=== PATIENT | female | born 1955 | race American Indian/Alaskan Native ===

== ENCOUNTER 2019-11-17 09:38 | Inpatient (IN) | payer MEDICAID ==
--- NOTE | 2019-11-17 10:16 | Cat Scan Report ---
CT BRAIN: 11/17/2019 INDICATION / CLINICAL INFORMATION: Altered mental status. COMPARISON: None available. FINDINGS: BRAIN/INTRACRANIAL STRUCTURES: Unenhanced CT images of the brain demonstrate no evidence of acute abn ormality. Ventricles and sulci are prominent in size, consistent with pronounced diffuse cerebral atrophy. There is a cortical encephalomalacia are present in the left occipital, right parietal and temporal r egions. Extensive chronic white matter hypoattenuation is present diffusely. There is no evidence of acute large vessel territory ischemic injury, hemorrhage, or mass. There are no abnormal extra-axial fluid collections. Atherosclerotic vascular calcifications are present in the distal internal carotid arteries and verte bral arteries. EXTRACRANIAL STRUCTURES: Unremarkable. IMPRESSION: No acute abnormality. Extensive chronic change. All CT scans at this location are performed using dose reduction to ALARA by means of automated expos ure control. Signer Name: Mack Black MD Signed: 11/17/2019 10:12 AM Workstation Name: [id number]
--- NOTE | 2019-11-17 10:18 | Emergency Department Report ---
ED Neuro Deficit HPI - General Chief Complaint: Neuro Symptoms/Deficit Stated Complaint: STROKE Time Seen by Provider: 11/17/19 10:17 Source: patient, EMS Mode of arrival: Stretcher Limitations: No Limitations - History of Present Illness Initial Comments: This is a 69-year-old lady end-stage renal on dialysis this being her dialysis day. She awoke at approximately 9:00 this morning with slurred speech and left- sided weakness. She tells me she has no prior history of seizure disorder. She is able to speak coherently. At her baseline she is able to walk. Her roommate noted her debility and called EMS. She was transported as a stroke code. She has had multiple prior strokes in the past. She is a poor historian and cannot tell me the name of her dialysis nor her current medications. She has not been to this facility in the past. -: During the night Location: left face, left arm, left leg Presenting Symptoms: Present: Weak/Paralyzed One Side, Facial Droop/Numbness, Unable to Speak Clearly History of same: No Place: home Severity: severe Quality: weak Improves With: time Worsens With: none On Anticoagulants: No Associated Symptoms: denies other symptoms Treatments Prior to Arrival: none - Related Data Allergies/Adverse Reactions: Allergies Allergy/AdvReac Type Severity Reaction Status Date / Time adhesive tape Allergy Unknown Verified 11/17/19 09:47 Penicillins Allergy Unknown Verified 11/17/19 09:46 shellfish derived Allergy Unknown Verified 11/17/19 09:47 Seafood Allergy Unknown Uncoded 11/17/19 09:47 ED Review of Systems ROS: Stated complaint: STROKE Other details as noted in HPI Constitutional: no symptoms reported Eyes: denies: eye pain, eye discharge, vision change ENT: denies: ear pain, throat pain Respiratory: denies: cough, shortness of breath, wheezing Cardiovascular: denies: chest pain, palpitations Endocrine: no symptoms reported Gastrointestinal: denies: abdominal pain, vomiting Genitourinary: other (End-stage renal) Musculoskeletal: denies: back pain, myalgia Skin: denies: rash, lesions Neurological: as per HPI Psychiatric: denies: anxiety, depression Hematological/Lymphatic: denies: easy bleeding, easy bruising ED Past Medical Hx - Past Medical History Hx Hypertension: Yes Hx Renal Disease: Yes (Hemodialysis) Hx Psychiatric Treatment: Yes Additional medical history: Hyperlipidemia, Pruritus, Subarachnoid Hemorrhage - Social History Substance Use Type: None ED Neuro Physical Exam - General Limitations: Physical Limitation General appearance: cachectic (Somewhat) Suspected Stroke: Yes - Head Head exam: Present: atraumatic, normocephalic - Eye Eye exam: Present: normal appearance. Absent: scleral icterus - ENT ENT exam: Present: mucous membranes moist - Neck Neck exam: Present: normal inspection - Respiratory Respiratory exam: Present: normal lung sounds bilaterally. Absent: respiratory distress - Cardiovascular Cardiovascular Exam: Present: regular rate, normal rhythm. Absent: systolic murmur, diastolic murmur, rubs, gallop - GI/Abdominal GI/Abdominal exam: Present: soft, normal bowel sounds. Absent: distended, tenderness, guarding, rebound - Extremities Exam Extremities exam: Present: normal inspection - Back Exam Back exam: Present: normal inspection. Absent: paraspinal tenderness, vertebral tenderness - Neurological Exam Neurological exam: Present: alert, oriented X3, motor sensory deficit. Absent: CN II-XII intact - NIHSS Assessment Interval: Baseline 1a. Level of Consciousness: alert/keenly responsive 1b. LOC Questions: answers both correctly 1c. LOC Commands: performs tasks correctly 2. Best Gaze: normal 3. Visual: partial hemianopia 4. Facial Palsy: minor paralysis 5b. Motor Arm Right: no drift 5a. Motor Arm Left: some gravity effort 6a. Motor Leg Left: no drift 6b. Motor Leg Right: some gravity effort 7. Limb Ataxia: absent 8. Sensory: normal 9. Best Language: no aphasia 10. Dysarthria: mild/moderate dysarthria 11. Extinction/Inattention: no abnormality Total Score: 7 Stroke Severity: Moderate Stroke - Psychiatric Psychiatric exam: Present: normal affect, normal mood - Skin Skin exam: Present: warm, dry, intact, normal color. Absent: rash ED Course Vital Signs 11/17/19 10:00 Pulse Rate 92 H Respiratory 18 Rate Blood Pressure 130/92 [Left] O2 Sat by Pulse 97 Oximetry - Reevaluation(s) Reevaluation #1: Discussed with tele-neurologist. On sequential exam the patient had essentially returned to her baseline. She had no points for left-sided weakness or facial paresis. I think we can entertain the possibility of a Leander's paresis versus TIA. A gram of Keppra was ordered. She will be admitted for further care and evaluation. The tele-neurologist has ordered CTA studies. 11/17/19 10:47 - Lab Data Result diagrams: 11/17/19 10:04 11/17/19 10:04 Lab Results 11/17/19 11/17/19 11/17/19 Range/Units 10:04 10:04 10:04 WBC 7.6 (4.5-11.0) K/mm3 RBC 4.36 (3.65-5.03) M/mm3 Hgb 12.2 (10.1-14.3) gm/dl Hct 39.6 (30.3-42.9) % MCV 91 (79-97) fl MCH 28 (28-32) pg MCHC 31 (30-34) % RDW 16.9 H (13.2-15.2) % Plt Count 181 (140-440) K/mm3 Lymph % (Auto) 39.5 H (13.4-35.0) % Dupage % (Auto) 10.6 H (0.0-7.3) % Eos % (Auto) 3.7 (0.0-4.3) % Baso % (Auto) 0.6 (0.0-1.8) % Lymph # 3.0 (1.2-5.4) K/mm3 Dupage # 0.8 (0.0-0.8) K/mm3 Eos # 0.3 (0.0-0.4) K/mm3 Baso # 0.0 (0.0-0.1) K/mm3 Seg Neutrophils % 45.6 (40.0-70.0) % Seg Neutrophils # 3.5 (1.8-7.7) K/mm3 PT 13.8 (12.2-14.9) Sec. INR 1.05 (0.87-1.13) APTT 30.9 (24.2-36.6) Sec. Thrombin Time (15.1-19.6) Sec. Sodium 141 (137-145) mmol/L Potassium 4.3 (3.6-5.0) mmol/L Chloride 101.1 (98-107) mmol/L Carbon Dioxide 26 (22-30) mmol/L Anion Gap 18 mmol/L BUN 50 H (7-17) mg/dL Creatinine 7.1 H (0.7-1.2) mg/dL Estimated GFR 6 ml/min BUN/Creatinine Ratio 7 % Glucose 96 (65-100) mg/dL POC Glucose (70-105) Calcium 10.2 (8.4-10.2) mg/dL Phosphorus (2.5-4.5) mg/dL Magnesium (1.7-2.3) mg/dL Total Bilirubin (0.1-1.2) mg/dL Direct Bilirubin (0-0.2) mg/dL Indirect Bilirubin mg/dL AST (5-40) units/L ALT (7-56) units/L Alkaline Phosphatase (35-129) units/L Troponin T 0.223 H* (0.00-0.029) ng/mL NT-Pro-B Natriuret Pep (0-900) pg/mL Total Protein (6.3-8.2) g/dL Albumin (3.9-5) g/dL Albumin/Globulin Ratio % Triglycerides 141 (2-149) mg/dL Cholesterol 207 H (50-199) mg/dL LDL Cholesterol Direct 137 H (50-130) mg/dL HDL Cholesterol 39 L (40-59) mg/dL Cholesterol/HDL Ratio 5.30 % 11/17/19 11/17/19 11/17/19 Range/Units 10:04 10:16 10:33 WBC (4.5-11.0) K/mm3 RBC (3.65-5.03) M/mm3 Hgb (10.1-14.3) gm/dl Hct (30.3-42.9) % MCV (79-97) fl MCH (28-32) pg MCHC (30-34) % RDW (13.2-15.2) % Plt Count (140-440) K/mm3 Lymph % (Auto) (13.4-35.0) % Dup[place] % (Auto) (0.0-7.3) % Eos % (Auto) (0.0-4.3) % Baso % (Auto) (0.0-1.8) % Lymph # (1.2-5.4) K/mm3 Dup[place] # (0.0-0.8) K/mm3 Eos # (0.0-0.4) K/mm3 Baso # (0.0-0.1) K/mm3 Seg Neutrophils % (40.0-70.0) % Seg Neutrophils # (1.8-7.7) K/mm3 PT (12.2-14.9) Sec. INR (0.87-1.13) APTT (24.2-36.6) Sec. Thrombin Time 15.6 (15.1-19.6) Sec. Sodium (137-145) mmol/L Potassium (3.6-5.0) mmol/L Chloride (98-107) mmol/L Carbon Dioxide (22-30) mmol/L Anion Gap mmol/L BUN (7-17) mg/dL Creatinine (0.7-1.2) mg/dL Estimated GFR ml/min BUN/Creatinine Ratio % Glucose (65-100) mg/dL POC Glucose 92 (70-105) Calcium (8.4-10.2) mg/dL Phosphorus (2.5-4.5) mg/dL Magnesium 2.60 H (1.7-2.3) mg/dL Total Bilirubin 0.20 (0.1-1.2) mg/dL Direct Bilirubin < 0.2 (0-0.2) mg/dL Indirect Bilirubin 0.0 mg/dL AST 15 (5-40) units/L ALT 12 (7-56) units/L Alkaline Phosphatase 80 (35-129) units/L Troponin T (0.00-0.029) ng/mL NT-Pro-B Natriuret Pep 1785 H (0-900) pg/mL Total Protein 6.9 (6.3-8.2) g/dL Albumin 3.7 L (3.9-5) g/dL Albumin/Globulin Ratio 1.2 % Triglycerides (2-149) mg/dL Cholesterol (50-199) mg/dL LDL Cholesterol Direct (50-130) mg/dL HDL Cholesterol (40-59) mg/dL Cholesterol/HDL Ratio % 07/17/20 Range/Units 10:33 WBC (4.5-11.0) K/mm3 RBC (3.65-5.03) M/mm3 Hgb (10.1-14.3) gm/dl Hct (30.3-42.9) % MCV (79-97) fl MCH (28-32) pg MCHC (30-34) % RDW (13.2-15.2) % Plt Count (140-440) K/mm3 Lymph % (Auto) (13.4-35.0) % [place] % (Auto) (0.0-7.3) % Eos % (Auto) (0.0-4.3) % Baso % (Auto) (0.0-1.8) % Lymph # (1.2-5.4) K/mm3 [place] # (0.0-0.8) K/mm3 Eos # (0.0-0.4) K/mm3 Baso # (0.0-0.1) K/mm3 Seg Neutrophils % (40.0-70.0) % Seg Neutrophils # (1.8-7.7) K/mm3 PT (12.2-14.9) Sec. INR (0.87-1.13) APTT (24.2-36.6) Sec. Thrombin Time (15.1-19.6) Sec. Sodium (137-145) mmol/L Potassium (3.6-5.0) mmol/L Chloride (98-107) mmol/L Carbon Dioxide (22-30) mmol/L Anion Gap mmol/L BUN (7-17) mg/dL Creatinine (0.7-1.2) mg/dL Estimated GFR ml/min BUN/Creatinine Ratio % Glucose (65-100) mg/dL POC Glucose (70-105) Calcium (8.4-10.2) mg/dL Phosphorus 4.90 H (2.5-4.5) mg/dL Magnesium (1.7-2.3) mg/dL Total Bilirubin (0.1-1.2) mg/dL Direct Bilirubin (0-0.2) mg/dL Indirect Bilirubin mg/dL AST (5-40) units/L ALT (7-56) units/L Alkaline Phosphatase (35-129) units/L Troponin T (0.00-0.029) ng/mL NT-Pro-B Natriuret Pep (0-900) pg/mL Total Protein (6.3-8.2) g/dL Albumin (3.9-5) g/dL Albumin/Globulin Ratio % Triglycerides (2-149) mg/dL Cholesterol (50-199) mg/dL LDL Cholesterol Direct (50-130) mg/dL HDL Cholesterol (40-59) mg/dL Cholesterol/HDL Ratio % Laboratory Results - last 24 hr 11/17/19 11/17/19 11/17/19 10:04 10:04 10:04 WBC 7.6 RBC 4.36 Hgb 12.2 Hct 39.6 MCV 91 MCH 28 MCHC 31 RDW 16.9 H Plt Count 181 Lymph % (Auto) 39.5 H [place] % (Auto) 10.6 H Eos % (Auto) 3.7 Baso % (Auto) 0.6 Lymph # 3.0 [place] # 0.8 Eos # 0.3 Baso # 0.0 Seg Neutrophils % 45.6 Seg Neutrophils # 3.5 PT 13.8 INR 1.05 APTT 30.9 Thrombin Time Sodium 141 Potassium 4.3 Chloride 101.1 Carbon Dioxide 26 Anion Gap 18 BUN 50 H Creatinine 7.1 H Estimated GFR 6 BUN/Creatinine Ratio 7 Glucose 96 POC Glucose Calcium 10.2 Phosphorus Magnesium Total Bilirubin Direct Bilirubin Indirect Bilirubin AST ALT Alkaline Phosphatase Troponin T 0.223 H* NT-Pro-B Natriuret Pep Total Protein Albumin Albumin/Globulin Ratio Triglycerides 141 Cholesterol 207 H LDL Cholesterol Direct 137 H HDL Cholesterol 39 L Cholesterol/HDL Ratio 5.30 11/17/19 11/17/19 11/17/19 10:04 10:16 10:33 WBC RBC Hgb Hct MCV MCH MCHC RDW Plt Count Lymph % (Auto) [place] % (Auto) Eos % (Auto) Baso % (Auto) Lymph # [place] # Eos # Baso # Seg Neutrophils % Seg Neutrophils # PT INR APTT Thrombin Time 15.6 Sodium Potassium Chloride Carbon Dioxide Anion Gap BUN Creatinine Estimated GFR BUN/Creatinine Ratio Glucose POC Glucose 92 Calcium Phosphorus Magnesium 2.60 H Total Bilirubin 0.20 Direct Bilirubin < 0.2 Indirect Bilirubin 0.0 AST 15 ALT 12 Alkaline Phosphatase 80 Troponin T NT-Pro-B Natriuret Pep 1785 H Total Protein 6.9 Albumin 3.7 L Albumin/Globulin Ratio 1.2 Triglycerides Cholesterol LDL Cholesterol Direct HDL Cholesterol Cholesterol/HDL Ratio 11/17/19 10:33 WBC RBC Hgb Hct MCV MCH MCHC RDW Plt Count Lymph % (Auto) [place] % (Auto) Eos % (Auto) Baso % (Auto) Lymph # [place] # Eos # Baso # Seg Neutrophils % Seg Neutrophils # PT INR APTT Thrombin Time Sodium Potassium Chloride Carbon Dioxide Anion Gap BUN Creatinine Estimated GFR BUN/Creatinine Ratio Glucose POC Glucose Calcium Phosphorus 4.90 H Magnesium Total Bilirubin Direct Bilirubin Indirect Bilirubin AST ALT Alkaline Phosphatase Troponin T NT-Pro-B Natriuret Pep Total Protein Albumin Albumin/Globulin Ratio Triglycerides Cholesterol LDL Cholesterol Direct HDL Cholesterol Cholesterol/HDL Ratio - EKG Data -: EKG Interpreted by Me EKG shows normal: sinus rhythm, axis, intervals, QRS complexes, ST-T waves Rate: normal, bradycardia Interpretation: no acute changes - Radiology Data Radiology results: report reviewed, image reviewed BRAIN/INTRACRANIAL STRUCTURES: Unenhanced CT images of the brain demonstrate no evidence of acute abnormality. Ventricles and sulci are prominent in size, consistent with pronounced diffuse cerebral atrophy. There is a cortical encephalomalacia are present in the left occipital, right parietal and temporal regions. Extensive chronic white matter hypoattenuation is present diffusely. There is no evidence of acute large vessel territory ischemic injury, hemorrhage, or mass. There are no abnormal extra-axial fluid collections. Atherosclerotic vascular calcifications are present in the distal internal carotid arteries and vertebral arteries. EXTRACRANIAL STRUCTURES: Unremarkable. IMPRESSION: No acute abnormality. Extensive chronic change. Chest x-ray dialysis catheter in place. No acute process. Critical care attestation.: If time is entered above; I have spent that time in minutes in the direct care of this critically ill patient, excluding procedure time. ED Disposition Clinical Impression: End-stage renal disease needing dialysis, Elevated troponin Stroke (cerebrum) Qualifiers: CVA mechanism: unspecified Qualified Code(s): I63.9 - Cerebral infarction, unspecified Disposition: DC-09 OP ADMIT IP TO THIS HOSP Is pt being admited?: Yes Does the pt Need Aspirin: Yes Condition: Stable Time of Disposition: 11:50
--- NOTE | 2019-11-17 10:30 | Emergency Department Report ---
ED Neuro Deficit HPI - General Chief Complaint: Neuro Symptoms/Deficit Stated Complaint: STROKE Time Seen by Provider: 11/17/19 10:17 Source: patient, EMS Mode of arrival: Stretcher Limitations: No Limitations - History of Present Illness Initial Comments: [employer] Date of Service: 11/17/2019 09:59:36 Impression: Rule Out Acute Ischemic Stroke Right Hemispheric Infarct Comments/Sign-Out: she says the left facial droop and slurred speech is new andshjt has a field cut on the left but has evidence of prior bioccipital strokes on her CT of the head that are chronic.given the ambiguity of what is new and old and her saying that this is a with an NIH of [address] angiogram of the head and neck to exclude new large vessel occlusion. Would start her on aspirin therapy and if no large vessel occlusion seen admitted for stroke workup and inpatient neurology consultation Metrics: Last Known Well: 11/16/2019 22:00:00 [employer] Notification Time: 11/17/2019 09:59:09 Arrival Time: 11/17/2019 09:38:00 Stamp Time: 11/17/2019 09:59:36 Time First Login Attempt: 11/17/2019 10:05:00 Video Start Time: 11/17/2019 10:05:00 Symptoms: slurred speech NIHSS Start Assessment Time: 11/17/2019 10:06:00 Patient is not a candidate for tPA. Patient was not deemed candidate for tPA thrombolytics because of Last Well Known Above 4.5 Hours. Video End Time: 11/17/2019 10:22:41 CT head was reviewed and results were: the patient has evidence of Lower Likelihood of Large Vessel Occlusion but Following Stat Studies are Recommended CTA Head and Neck. ED Physician notified of diagnostic impression and management plan on 11/17/2019 10:26:03 Our recommendations are outlined below. Recommendations: Activate Stroke Protocol Admission/Order Set Stroke/Telemetry Floor Neuro Checks Bedside Swallow Eval DVT Prophylaxis IV Fluids, Normal Saline Head of Bed 30 Degrees Euglycemia and Avoid Hyperthermia (PRN Acetaminophen) Initiate Aspirin 325 MG Daily Routine Consultation with Inhouse Neurology for Follow up Care Sign Out: Discussed with Emergency Department Provider History of Present Illness: Patient is a 64 year old Female. Patient was brought by EMS for symptoms of slurred speech She woke up with sx at 7am. LKN at 22:00. She has weakness in her LUE. She has is borderine DM, two prior strokes. She comes from n assisted living facility with new left facial droop and left sided weakness. She did dialysis on wed. Examination: BP(130/92), Blood Glucose(92) 1A: Level of Consciousness - Alert; keenly responsive + 0 1B: Ask Month and Age - Both Questions Right + 0 1C: Blink Eyes & Squeeze Hands - Performs Both Tasks + 0 2: Test Horizontal Extraocular Movements - Normal + 0 3: Test Visual Cox - Complete Hemianopia + 2 4: Test Facial Palsy (Use Grimace if Obtunded) - Partial paralysis (lower face) + 2 5A: Test Left Arm Motor Drift - Drift, but doesn't hit bed + 1 5B: Test Right Arm Motor Drift - Drift, hits bed + 2 6A: Test Left Leg Motor Drift - Drift, but doesn't hit bed + 1 6B: Test Right Leg Motor Drift - No Drift for 5 Seconds + 0 7: Test Limb Ataxia (FNF/Heel-Neves) - No Ataxia + 0 8: Test Sensation - Normal; No sensory loss + 0 9: Test Language/Aphasia - Normal; No aphasia + 0 10: Test Dysarthria - Mild-Moderate Dysarthria: Slurring but can be understood + 1 11: Test Extinction/Inattention - Extinction to bilateral simultaneous stimulation + 1 NIHSS Score: 10 Patient/Family was informed the Neurology Consult would happen via TeleHealth consult by way of interactive audio and video telecommunications and consented to receiving care in this manner. Due to the immediate potential for life-threatening deterioration due to underlying acute neurologic illness, I spent 35 minutes providing critical care. This time includes time for face to face visit via telemedicine, review of medical records, imaging studies and discussion of findings with providers, the patient and/or family. Dr Marci Ramirez [employer] - Related Data Allergies/Adverse Reactions: Allergies Allergy/AdvReac Type Severity Reaction Status Date / Time adhesive tape Allergy Unknown Verified 11/17/19 09:47 Penicillins Allergy Unknown Verified 11/17/19 09:46 shellfish derived Allergy Unknown Verified 11/17/19 09:47 Seafood Allergy Unknown Uncoded 11/17/19 09:47 ED Review of Systems ROS: Stated complaint: STROKE Other details as noted in HPI ED Past Medical Hx - Past Medical History Hx Hypertension: Yes Hx Renal Disease: Yes (Hemodialysis) Hx Psychiatric Treatment: Yes Additional medical history: Hyperlipidemia, Pruritus, Subarachnoid Hemorrhage ED Neuro Physical Exam - General Limitations: No Limitations Suspected Stroke: Yes - NIHSS Assessment Interval: Baseline 1a. Level of Consciousness: alert/keenly responsive 1b. LOC Questions: answers both correctly 1c. LOC Commands: performs tasks correctly 2. Best Gaze: normal 3. Visual: complete hemianopia 4. Facial Palsy: partial paralysis 5b. Motor Arm Right: no drift 5a. Motor Arm Left: no gravity effort 6a. Motor Leg Left: drift 6b. Motor Leg Right: no drift 7. Limb Ataxia: absent 8. Sensory: mild/moderate sensory loss 9. Best Language: no aphasia 10. Dysarthria: mild/moderate dysarthria 11. Extinction/Inattention: visual/tactile inattention Total Score: 11 Stroke Severity: Moderate Stroke - Lab Data Lab Results 11/17/19 Range/Units 10:16 POC Glucose 92 (70-105) Critical care attestation.: If time is entered above; I have spent that time in minutes in the direct care of this critically ill patient, excluding procedure time. ED Disposition Clinical Impression: Stroke (cerebrum) Qualifiers: CVA mechanism: unspecified Qualified Code(s): I63.9 - Cerebral infarction, unspecified Disposition: DC-09 OP ADMIT IP TO THIS HOSP Is pt being admited?: Yes Condition: Stable
[2019-11-17 10:47] LABS: Basophils % (Auto) 0.6 % (0.0-1.8); Eosinophils # (Auto) 0.3 K/mm3 (0.0-0.4); Eosinophils % (Auto) 3.7 % (0.0-4.3); Hematocrit 39.6 % (30.3-42.9); Hemoglobin 12.2 gm/dl (10.1-14.3); Lymphocytes % (Auto) 39.5 % (13.4-35.0); Mean Corpuscular HGB Conc 31 % (30-34); Mean Corpuscular Volume 91 fl (79-97); Monocytes # (Auto) 0.8 K/mm3 (0.0-0.8); Monocytes % (Auto) 10.6 % (0.0-7.3); Platelet Count 181 K/mm3 (140-440); Red Blood Count 4.36 M/mm3 (3.65-5.03); Red Cell Distribution Width 16.9 % (13.2-15.2)
[2019-11-17 10:57] LABS: INR 1.05 (0.87-1.13); Partial Thromboplastin Time 30.9 Sec. (24.2-36.6)
[2019-11-17 11:04] LABS: Calcium 10.2 mg/dL (8.4-10.2)
[2019-11-17 11:08] LABS: Alanine Aminotransferase 12 units/L (7-56); Albumin 3.7 g/dL (3.9-5)
[2019-11-17 11:19] LABS: Bilirubin,Direct < 0.2 mg/dL (0-0.2)
[2019-11-17 11:23] LABS: Chol/HDL Ratio 5.3 %
--- NOTE | 2019-11-17 11:44 | XRay Report ---
CHEST 1 VIEW 11/17/2019 10:26 AM INDICATION / CLINICAL INFORMATION: hypertension. COMPARISON: None available. FINDINGS: SUPPORT DEVICES: Right PermCath projects over the right atrium in expected position. HEART / MEDIASTINUM: No significant abnormality. LUNGS / PLEURA: No significant pulmonary or pleural abnormality. No pneumothorax. ADDITIONAL FINDINGS: No significant additional findings. IMPRESSION: 1. No acute findings. Signer Name: Ute Burdick MD Signed: 11/17/2019 11:39 AM Workstation Name: [id number]
[2019-11-17] MEDS ORDERED: ASPIRIN 325 MG TAB PO ONE (11:50)
--- NOTE | 2019-11-17 13:17 | History and Physical Report ---
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 In the past patient was able to walk with the help of a cane and rolling walker, with coherent speech., Code stroke was called, telemetry neurologist has evaluated the patient, patient was not a candidate for TPA, recommend evaluation and management per stroke protocol CT head without contrast; no acute abnormality, extensive old findings Patient also has end-stage renal disease on hemodialysis as well as history of seizure disorder Denies chest pain or shortness of breath, denies headache or dizziness Denies nausea vomiting or abdominal pain. Past History Past Medical History: dialysis, ESRD, hypertension, hyperlipidemia, stroke (residual weakness), other (psych disorder) Past Surgical History: No surgical history Social history: denies: smoking, alcohol abuse, prescription drug abuse Family history: hypertension Medications and Allergies Allergies Allergy/AdvReac Type Severity Reaction Status Date / Time adhesive tape Allergy Unknown Verified 11/17/19 09:47 Penicillins Allergy Unknown Verified 11/17/19 09:46 shellfish derived Allergy Unknown Verified 11/17/19 09:47 Seafood Allergy Unknown Uncoded 11/17/19 09:47 Review of Systems Constitutional: weakness, other, no weight loss, no weight gain, no fever, no chills Ears, nose, mouth and throat: other (Slurred speech) Cardiovascular: no chest pain, no orthopnea, no palpitations Respiratory: no cough with sputum, no shortness of breath Gastrointestinal: no abdominal pain, no nausea, no vomiting Genitourinary Female: no flank pain, no dysuria Musculoskeletal: no myalgias, no arthritis Integumentary: no rash, no lesions Neurological: weakness (Left-sided weakness), other (Slurred speech) Psychiatric: no anxiety, no depression Endocrine: no cold intolerance, no heat intolerance Hematologic/Lymphatic: no easy bruising, no easy bleeding Allergic/Immunologic: no urticaria, no allergic rhinitis Exam - Constitutional Vitals: Temp Pulse Resp BP Pulse Ox 92 H 18 130/92 97 11/17/19 10:00 11/17/19 10:00 11/17/19 10:00 11/17/19 10:00 General appearance: Present: mild distress, well-nourished, other (slurred speech, left facial droop) - EENT Eyes: Present: PERRL ENT: hearing intact, clear oral mucosa - Neck Neck: Present: supple, normal ROM - Respiratory Respiratory effort: normal Respiratory: bilateral: diminished, negative: rales, rhonchi, wheezing - Cardiovascular Rhythm: regular Heart Sounds: Present: S1 & S2 - Extremities Extremities: no ischemia, No edema - Abdominal General gastrointestinal: Present: soft, non-tender, non-distended, normal bowel sounds - Integumentary Integumentary: Present: clear, warm - Musculoskeletal Musculoskeletal: left sided weakness - Psychiatric Psychiatric: appropriate mood/affect, cooperative - Neurologic Neurologic: other (Left-sided weakness, slurred speech, left facial droop) HEART Score - HEART Score Troponin: Troponin T 0.223 ng/mL (0.00-0.029) H* 11/17/19 10:04 Results - Labs CBC & Chem 7: 11/17/19 10:04 11/17/19 10:04 Labs: Abnormal lab results 11/17/19 11/17/19 11/17/19 Range/Units 10:04 10:04 10:33 RDW 16.9 H (13.2-15.2) % Lymph % (Auto) 39.5 H (13.4-35.0) % [place] % (Auto) 10.6 H (0.0-7.3) % BUN 50 H (7-17) mg/dL Creatinine 7.1 H (0.7-1.2) mg/dL Phosphorus (2.5-4.5) mg/dL Magnesium 2.60 H (1.7-2.3) mg/dL Troponin T 0.223 H* (0.00-0.029) ng/mL NT-Pro-B Natriuret Pep 1785 H (0-900) pg/mL Albumin 3.7 L (3.9-5) g/dL Cholesterol 207 H (50-199) mg/dL LDL Cholesterol Direct 137 H (50-130) mg/dL HDL Cholesterol 39 L (40-59) mg/dL 11/17/19 Range/Units 10:33 RDW (13.2-15.2) % Lymph % (Auto) (13.4-35.0) % [place] % (Auto) (0.0-7.3) % BUN (7-17) mg/dL Creatinine (0.7-1.2) mg/dL Phosphorus 4.90 H (2.5-4.5) mg/dL Magnesium (1.7-2.3) mg/dL Troponin T (0.00-0.029) ng/mL NT-Pro-B Natriuret Pep (0-900) pg/mL Albumin (3.9-5) g/dL Cholesterol (50-199) mg/dL LDL Cholesterol Direct (50-130) mg/dL HDL Cholesterol (40-59) mg/dL Assessment and Plan --Acute CVA; with left-sided weakness Not a candidate for TPA, telemetry neurologist evaluated the patient Aspirin, statin, Neuro checks Neuro work-up with MRI, MRA brain, carotid Doppler Echocardiogram, neurology consult PT OT rehab Swallow evaluation, cardiac diet if swallow evaluation is normal Speech therapy evaluation and treat --End-stage renal disease; on hemodialysis HD per schedule, nephrology consulted --Hypertension; Permissive hypertension per stroke protocol Closely monitor, PRN medications --Dyslipidemia; continue statin --History of CVA in the past with residual weakness Supportive care, PT OT --DVT prophylaxis; Lovenox --Full CODE STATUS Monitor closely and adjust management as needed Follow neurology evaluation and recommendations Plan of care reviewed with the patient and her nurse
--- NOTE | 2019-11-17 14:11 | Cat Scan Report ---
CTA head with intravenous contrast CLINICAL HISTORY: MAIN TECHNIQUE: 0.625 mm thick contiguous axial scans were obtained from the skull base to the skull vertex during r apid bolus administration of intravenous contrast material. Multiplanar reconstructions were produced in the coronal and sagittal planes. In addition 3 plane MIP instructions were produced and reviewed for this report. The axial source images and reconstructed images were reviewed for this report. CONTRAST DOSE REPORT: Omnipaque 350: 100 ml administered intravenously. All CT scans at this location are performed using CT dose reduction for ALARA by means of automated e xposure control. FINDINGS: Internal carotid arteries: Calcified atherosclerotic plaque is observed along the course of the ernesto nous segments of both internal carotid arteries without associated hemodynamically significant stenos is. This extends up into the supraclinoid regions bilaterally. Middle cerebral arteries: Balanced middle cerebral arteries are noted. Normal and symmetrical M1 segm ents of the middle cerebral arteries are observed. Insular and opercular branches of the middle cereb ral arteries have a symmetrical appearance. No indication of large vessel occlusion is identified. Anterior cerebral arteries: Bilaterally symmetrical A1 segments anterior cerebral arteries are noted. A too segments and pericallosal branches have an unremarkable appearance. An intact anterior communi cating artery is observed. Vertebral arteries: Balanced vertebral arteries both contribute to the basilar artery origin. Basilar artery has an unremarkable appearance. Basilar artery: Basilar artery has an unremarkable appearance. Posterior cerebral arteries: Lateral posterior communicating arteries are identified. Posterior cereb ral arteries have a normal and symmetrical appearance. Dural sinuses: Dural venous sinuses are well demonstrated on this exam. There is no evidence of dural sinus thrombosis. IMPRESSION: 1. No indication of large vessel occlusion or hemodynamically significant stenosis intracranial is ob served CTA head. Signer Name: Norm Flores MD Signed: 11/17/2019 2:07 PM Workstation Name: [id number]
--- NOTE | 2019-11-17 14:17 | Cat Scan Report ---
CTA neck without and with intravenous contrast material CLINICAL HISTORY: stroke TECHNIQUE: Following acquisition of a timing bolus 0.625 mm thick contiguous axial scans were obtained from aort ic arch to the skull base during rapid bolus intravenous contrast infusion. In addition to evaluation of axial source images multiplanar reconstructions were produced and reviewed for this report. 3 vicente ne MIP reconstructions were produced and reviewed. Contrast dose report: Omnipaque 350: 100 ml, administered intravenously All CT examinations performed at this facility utilize modulated dose reduction, iterative reconstruc tion or weight-based dosing, as appropriate, to obtain a radiation dose which is as low as can reason ably be achieved. FINDINGS: Thoracic aorta:No abnormalities are identified along the course of the thoracic aorta..The origins of the great vessels have an unremarkable appearance. Brachiocephalic artery, left common carotid arter y origin and left subclavian artery all have an unremarkable appearance. There is a small amount of g as in the main pulmonary artery. This is likely related to intravenous contrast injection for venous access. Right carotid artery:No abnormalities are seen along the course of the RCCA, at the right carotid bif urcation or along the cervical portions of the JENNIFER. Left carotid artery: No abnormalities are noted along the course of the left common carotid artery, a t the left carotid bifurcation or along the course of the cervical segments of the LICA. Posterior circulation: Calcified plaque is present near the origin of the right vertebral artery. The re is no associated stenosis. Balanced vertebral arteries are demonstrated. Both vertebral arteries c ontribute to the basilar artery origin. The degree of stenosis, if any, is determined utilizing NASCET like criteria. In this case there is no indication of hemodynamically significant stenosis at the carotid bifurcations or elsewhere. Evaluation of the nonvascular soft tissue structures reveal no abnormality. There is no indication of cervical lymphadenopathy. No abnormalities are seen along the course of the airway. Visualized porti ons of the parotid glands and the submandibular salivary glands have a normal appearance. Thyroid gla nd has a normal appearance. Evaluation of the lung apices reveals no evidence of lung nodule or infil trate. Evaluation of the cervical spine revealed no significant abnormalities. IMPRESSION: 1. No indication of hemodynamically significant stenosis at the carotid bifurcations or elsewhere. Signer Name: Norm Floers MD Signed: 11/17/2019 2:13 PM Workstation Name: [id number]
--- NOTE | 2019-11-17 16:36 | Consultation ---
History of Present Illness - Reason for Consult end stage renal disease - History of Present Illness 64 y/o EULA, resident of [facility], was sent to the ED today secondary to stroke like symptoms that included slurred speech and weakness. She has a PMHx of ESRD in the setting of HTN, previous CVA (x4), and is dialyzed typically at [facility] facility in [place]. 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 Dickinson, and she typically dialyzes on a [facility] outpatient schedule. Information was obtained from discussion with patient's daughter. Past History Past Medical History: dialysis, ESRD, hypertension, hyperlipidemia, stroke (residual weakness), other (psych disorder) Past Surgical History: No surgical history Social history: denies: smoking, alcohol abuse, prescription drug abuse Family history: hypertension Medications and Allergies Allergies Allergy/AdvReac Type Severity Reaction Status Date / Time adhesive tape Allergy Unknown Verified 11/17/19 09:47 Penicillins Allergy Unknown Verified 11/17/19 09:46 shellfish derived Allergy Unknown Verified 11/17/19 09:47 Seafood Allergy Unknown Uncoded 11/17/19 09:47 Review of Systems All systems: negative Constitutional: fatigue, weakness Neurological: change in speech Exam - Vital Signs Vital signs: Vital Signs Pulse Resp BP Pulse Ox 92 H 18 130/92 97 11/17/19 10:00 11/17/19 10:00 11/17/19 10:00 11/17/19 10:00 - General Appearance General appearance: appears stated age, chronically ill EENT: ATNC Neck: Present: neck supple, trachea midline Respiratory: Clear to Ascultation Heart: regular, S1S2 Gastrointestinal: Present: normal Integumentary: no rash Neurologic: aphasic, upper extremity weakness, facial droop Musculoskeletal: Present: deferred Psychiatric: cooperative Results - Lab Results 11/17/19 10:04 11/17/19 10:04 Most recent lab results Calcium 10.2 mg/dL (8.4-10.2) 11/17/19 10:04 Phosphorus 4.90 mg/dL (2.5-4.5) H 11/17/19 10:33 Magnesium 2.60 mg/dL (1.7-2.3) H 11/17/19 10:33 Assessment and Plan - Patient Problems (1) End-stage renal disease needing dialysis Current Visit: Yes Status: Acute Plan to address problem: No urgent need for HD today. Will place orders for HD tomorrow, after which we will switch her to [facility] inpatient HD schedule. Will monitor closely. (2) Aphasia due to acute cerebrovascular accident (CVA) Current Visit: Yes Status: Acute Plan to address problem: Follow up CTA reviewed. Neurology recommendations appreciated. 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 (5) Anemia due to chronic kidney disease, on chronic dialysis Current Visit: Yes Status: Chronic Plan to address problem: Current H/H levels are at goal. No acute indications for MYNOR therapy at this time.
[2019-11-17] MEDS ORDERED: SODIUM CHLORIDE 0.9% 100 ML IV PRN (16:42)
[2019-11-17] MEDS ORDERED: ALBUMIN HUMAN 25% (12.5 GM/50 ML) INJ IV PRN (16:42)
[2019-11-17] MEDS ORDERED: MAGNESIUM HYDROXIDE (MOM) ORAL LIQD UDC PO PRN (18:44)
[2019-11-17] MEDS ORDERED: ACETAMINOPHEN 325 MG TAB PO PRN (18:44)
[2019-11-17] MEDS ORDERED: MORPHINE 2 MG/1 ML INJ IV PRN (18:44)
[2019-11-17] MEDS ORDERED: oxyCODONE /ACETAMINOPHEN 5-325MG TAB PO PRN (18:44)
[2019-11-17] MEDS ORDERED: ONDANSETRON 4 MG/2 ML INJ IV PRN (18:44)
[2019-11-17] MEDS ORDERED: METOCLOPRAMIDE 10 MG TAB PO PRN (18:44)
[2019-11-17] MEDS ORDERED: PROMETHAZINE 25 MG RECT SUPP PR PRN (18:44)
[2019-11-18] MEDS: DOCUSATE SODIUM 100 MG CAP PO SCH ×2 (00:29→10:13)
[2019-11-18] MEDS: SODIUM CHLORIDE 0.9% 1000 ML 1,000 ML IV SCH (05:25)
[2019-11-18 07:55] LABS: BUN/Creatinine Ratio 8; Blood Urea Nitrogen 58 mg/dL (7-17); Calcium 9.6 mg/dL (8.4-10.2); Hemolysis Index 27
[2019-11-18 07:56] LABS: Creatine Kinase MB < 1.0 ng/mL (0.0-4.0)
[2019-11-18 08:05] LABS: Hepatitis B Surface Antigen Non-Reactive (Negative); Hepatitis C Virus Antibody Non-Reactive (NonReactive)
--- NOTE | 2019-11-18 09:10 | Progress Note ---
Assessment and Plan - Patient Problems (1) End-stage renal disease needing dialysis Current Visit: Yes Status: Acute Plan to address problem: Plan for HD today. Will then place on inpatient MWF HD schedule. Orders placed. (2) Aphasia due to acute cerebrovascular accident (CVA) Current Visit: Yes Status: Acute Plan to address problem: Follow up CTA reviewed. Neurology recommendations appreciated. 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 (5) Anemia due to chronic kidney disease, on chronic dialysis Current Visit: Yes Status: Chronic Plan to address problem: Current H/H levels are at goal. No acute indications for MYNOR therapy at this time. Subjective Date of service: 11/18/19 Interval history: No acute issues from renal standpoint overnight. Plan for HD today. Objective - Vital Signs Vital signs: Vital Signs - 12hr 11/17/19 11/17/19 11/18/19 22:51 23:01 00:01 Temperature Pulse Rate 59 L 58 L 78 Pulse Rate [ Apical] Respiratory 13 13 11 L Rate Blood Pressure 140/61 140/61 140/61 O2 Sat by Pulse Oximetry 11/18/19 11/18/19 11/18/19 01:01 02:01 02:49 Temperature Pulse Rate 64 77 58 L Pulse Rate [ Apical] Respiratory 12 12 Rate Blood Pressure 112/46 106/58 O2 Sat by Pulse 99 96 Oximetry 11/18/19 11/18/19 11/18/19 04:00 04:42 07:44 Temperature 98.9 F 98.7 F Pulse Rate 78 69 Pulse Rate [ 77 Apical] Respiratory 16 16 20 Rate Blood Pressure 142/76 135/71 O2 Sat by Pulse 96 97 96 Oximetry - General Appearance General appearance: appears stated age EENT: ATNC Neck: no JVD Respiratory: Present: Clear to Ascultation Cardiology: regular Gastrointestinal: normal Integumentary: no rash Neurologic: facial droop Musculoskeletal: deferred Psychiatric: cooperative - Lab 11/17/19 10:04 11/18/19 07:13 Most recent lab results Calcium 9.6 mg/dL (8.4-10.2) 11/18/19 07:13 Phosphorus 4.90 mg/dL (2.5-4.5) H 11/17/19 10:33 Magnesium 2.60 mg/dL (1.7-2.3) H 11/17/19 10:33 - Allied health notes Allied health notes reviewed: nursing Medications & Allergies - Medications Allergies/Adverse Reactions: Allergies adhesive tape Allergy (Verified 11/17/19 09:47) Unknown Penicillins Allergy (Verified 11/17/19 09:46) Unknown shellfish derived Allergy (Verified 11/17/19 09:47) Unknown Seafood Allergy (Uncoded 11/17/19 09:47) Unknown Home Medications: Home Medications Medication Instructions Recorded Confirmed Last Taken Type Acetaminophen [Tylenol] 650 mg PO Q6HR PRN 11/18/19 11/18/19 Unknown History Aspirin BABY CHEW TAB 81 mg PO QDAY 11/18/19 Unknown History AtorvaSTATin 20 mg PO QPM 11/18/19 Unknown History Docusate Sodium 100 mg PO Q12HR 11/18/19 Unknown History Folic Acid 2 mg PO Q12HR 11/18/19 Unknown History Midodrine 10 mg PO Q8HR 11/18/19 Unknown History Senna 1 tab PO Q12HR 11/18/19 Unknown History sevelamer HCL [Sevelamer HCl] 800 mg PO 11/18/19 Unknown History Active Medications: Generic Name Dose Route Start Last Admin Trade Name Freq PRN Reason Stop Dose Admin Acetaminophen 650 mg 11/17/19 18:44 Tylenol PO Q4H PRN Pain, Mild (1-3) Albumin Human 12.5 gm 11/17/19 16:42 Alburx 25% (Albumin) IV MIL PRN Hypotension Aspirin 325 mg 11/18/19 10:00 Aspirin PO QDAY SMITH Atorvastatin Calcium 40 mg 11/17/19 22:00 11/18/19 00:30 Lipitor PO Not Given QHS SMITH Bisacodyl 10 mg 11/17/19 18:44 Dulcolax MA QDAY PRN Constipation Docusate Sodium 100 mg 11/17/19 22:00 11/18/19 00:29 Colace PO Not Given BID SMITH Sodium Chloride 100 mls @ 999 mls/hr 11/17/19 16:42 Nacl 0.9% IV MIL PRN Hypotension Sodium Chloride 1,000 mls @ 100 mls/hr 11/17/19 18:45 11/18/19 05:25 Nacl 0.9% 1000 Ml IV 100 mls/hr DIRECT SMITH Administration Magnesium Hydroxide 30 ml 11/17/19 18:44 Milk Of Magnesia PO Q4H PRN Constipation Metoclopramide HCl 10 mg 11/17/19 18:44 Reglan PO Q6H PRN Nausea And Vomiting Morphine Sulfate 2 mg 11/17/19 18:44 Morphine IV Q4H PRN Pain, Moderate (4-6) Ondansetron HCl 4 mg 11/17/19 18:44 Zofran IV Q8H PRN Nausea And Vomiting Oxycodone/Acetaminophen 1 tab 11/17/19 18:44 Percocet 5/325 PO Q6H PRN Pain, Moderate (4-6) Promethazine HCl 25 mg 11/17/19 18:44 Phenergan MA Q6H PRN Nausea And Vomiting
[2019-11-18] MEDS: ASPIRIN 325 MG TAB PO SCH (10:13)
[2019-11-18] MEDS ORDERED: DEXTROSE 50% IN WATER (25GM) 50 ML SYRINGE IV PRN (17:31)
--- NOTE | 2019-11-18 20:09 | Progress Note ---
Assessment and Plan Assessment and plan: --Acute CVA; with left-sided weakness Not a candidate for TPA, telemetry neurologist evaluated the patient Aspirin, statin, Neuro checks Neuro work-up with MRI, brain, CTA head and neck Echocardiogram, neurology consult PT OT rehab,Swallow evaluation, cardiac diet if swallow evaluation is normal Speech therapy/swallow evaluation requested --End-stage renal disease; on hemodialysis HD per schedule, nephrology consulted --Hypertension; Permissive hypertension per stroke protocol Closely monitor, PRN medications --Dyslipidemia; continue statin --History of CVA in the past with residual weakness Supportive care, PT OT --DVT prophylaxis; Lovenox --Full CODE STATUS Monitor closely and adjust management as needed Follow neurology evaluation and recommendations Plan of care reviewed with the patient and her nurse History Interval history: I have seen and examined the patient at bedside Patient is alert and awake, speech slightly improved, left facial droop minimal improvement Patient is alert and awake, asking for food Vital signs reviewed Hospitalist Physical - Constitutional Vitals: Temp Pulse Resp BP Pulse Ox 98.3 F 72 20 117/69 97 11/18/19 16:37 11/18/19 16:37 11/18/19 16:37 11/18/19 16:37 11/18/19 16:37 General appearance: Present: no acute distress, well-nourished, other (slurred speech, left facial droop) - EENT Eyes: Present: PERRL, EOM intact - Neck Neck: Present: supple, normal ROM - Respiratory Respiratory effort: normal Respiratory: bilateral: diminished, negative: rales, rhonchi, wheezing - Cardiovascular Rhythm: regular Heart Sounds: Present: S1 & S2 - Extremities Extremities: no ischemia, No edema - Abdominal General gastrointestinal: soft, non-tender, non-distended, normal bowel sounds - Integumentary Integumentary: Present: clear, warm - Psychiatric Psychiatric: appropriate mood/affect, cooperative - Neurologic Neurologic: moves all extremities (CVA with residual weakness, slurred speech) HEART Score - HEART Score Troponin: Troponin T 0.235 ng/mL (0.00-0.029) H* 11/18/19 07:13 Results - Labs CBC & Chem 7: 11/17/19 10:04 11/18/19 07:13 Labs: Laboratory Last Values WBC 7.6 K/mm3 (4.5-11.0) 11/17/19 10:04 RBC 4.36 M/mm3 (3.65-5.03) 11/17/19 10:04 Hgb 12.2 gm/dl (10.1-14.3) 11/17/19 10:04 Hct 39.6 % (30.3-42.9) 11/17/19 10:04 MCV 91 fl (79-97) 11/17/19 10:04 MCH 28 pg (28-32) 11/17/19 10:04 MCHC 31 % (30-34) 11/17/19 10:04 RDW 16.9 % (13.2-15.2) H 11/17/19 10:04 Plt Count 181 K/mm3 (140-440) 11/17/19 10:04 Lymph % (Auto) 39.5 % (13.4-35.0) H 11/17/19 10:04 [place] % (Auto) 10.6 % (0.0-7.3) H 11/17/19 10:04 Eos % (Auto) 3.7 % (0.0-4.3) 11/17/19 10:04 Baso % (Auto) 0.6 % (0.0-1.8) 11/17/19 10:04 Lymph # 3.0 K/mm3 (1.2-5.4) 11/17/19 10:04 [place] # 0.8 K/mm3 (0.0-0.8) 11/17/19 10:04 Eos # 0.3 K/mm3 (0.0-0.4) 11/17/19 10:04 Baso # 0.0 K/mm3 (0.0-0.1) 11/17/19 10:04 Seg Neutrophils % 45.6 % (40.0-70.0) 11/17/19 10:04 Seg Neutrophils # 3.5 K/mm3 (1.8-7.7) 11/17/19 10:04 PT 13.8 Sec. (12.2-14.9) 11/17/19 10:04 INR 1.05 (0.87-1.13) 11/17/19 10:04 APTT 30.9 Sec. (24.2-36.6) 11/17/19 10:04 Thrombin Time 15.6 Sec. (15.1-19.6) 11/17/19 10:04 Sodium 141 mmol/L (137-145) 11/18/19 07:13 Potassium 5.0 mmol/L (3.6-5.0) 11/18/19 07:13 Chloride 99.0 mmol/L (98-107) 11/18/19 07:13 Carbon Dioxide 23 mmol/L (22-30) 11/18/19 07:13 Anion Gap 24 mmol/L 11/18/19 07:13 BUN 58 mg/dL (7-17) H 11/18/19 07:13 Creatinine 7.2 mg/dL (0.7-1.2) H 11/18/19 07:13 Estimated GFR 7 ml/min 11/18/19 07:13 BUN/Creatinine Ratio 8 % 11/18/19 07:13 Glucose 68 mg/dL (65-100) 11/18/19 07:13 POC Glucose 73 (70-105) 11/18/19 17:11 Hemoglobin A1c 4.2 % (4-6) 11/18/19 07:13 Calcium 9.6 mg/dL (8.4-10.2) 11/18/19 07:13 Phosphorus 4.90 mg/dL (2.5-4.5) H 11/17/19 10:33 Magnesium 2.60 mg/dL (1.7-2.3) H 11/17/19 10:33 Total Bilirubin 0.20 mg/dL (0.1-1.2) 11/17/19 10:33 Direct Bilirubin < 0.2 mg/dL (0-0.2) 11/17/19 10:33 Indirect Bilirubin 0.0 mg/dL 11/17/19 10:33 AST 15 units/L (5-40) 11/17/19 10:33 ALT 12 units/L (7-56) 11/17/19 10:33 Alkaline Phosphatase 80 units/L (35-129) 11/17/19 10:33 Total Creatine Kinase 20 units/L (30-135) L 11/18/19 07:13 CK-MB (CK-2) < 1.0 ng/mL (0.0-4.0) 11/18/19 07:13 CK-MB (CK-2) Rel Index 5.0 (0-4) H 11/18/19 07:13 Troponin T 0.235 ng/mL (0.00-0.029) H* 11/18/19 07:13 NT-Pro-B Natriuret Pep 1785 pg/mL (0-900) H 11/17/19 10:33 Total Protein 6.9 g/dL (6.3-8.2) 11/17/19 10:33 Albumin 3.7 g/dL (3.9-5) L 11/17/19 10:33 Albumin/Globulin Ratio 1.2 % 11/17/19 10:33 Triglycerides 141 mg/dL (2-149) 11/17/19 10:04 Cholesterol 207 mg/dL (50-199) H 11/17/19 10:04 LDL Cholesterol Direct 137 mg/dL (50-130) H 11/17/19 10:04 HDL Cholesterol 39 mg/dL (40-59) L 11/17/19 10:04 Cholesterol/HDL Ratio 5.30 % 11/17/19 10:04 Hepatitis A IgM Ab -1 (NonReactive) 11/18/19 07:13 Hep Bs Antigen Non-reactive (Negative) 11/18/19 07:13 Hep B Core IgM Ab Non-reactive (NonReactive) 11/18/19 07:13 Hepatitis C Antibody Non-reactive (NonReactive) 11/18/19 07:13 Kothari/IV: Voiding Method External Female Catheter IV Catheter Type [Right Chest] Permacath IV Catheter Type [Right INT / Saline Lock Antecubital] Active Medications - Current Medications Current Medications: Generic Name Dose Route Start Last Admin Trade Name Freq PRN Reason Stop Dose Admin Acetaminophen 650 mg 11/17/19 18:44 Tylenol PO Q4H PRN Pain, Mild (1-3) Albumin Human 12.5 gm 11/17/19 16:42 Alburx 25% (Albumin) IV MIL PRN Hypotension Aspirin 325 mg 11/18/19 10:00 11/18/19 10:13 Aspirin PO 325 mg QDAY SMITH Administration Atorvastatin Calcium 40 mg 11/17/19 22:00 11/18/19 00:30 Lipitor PO Not Given QHS SMITH Bisacodyl 10 mg 11/17/19 18:44 Dulcolax [place] QDAY PRN Constipation Dextrose 50 ml 11/18/19 17:31 11/18/19 18:12 D50w (25gm) Syringe IV 10 ml Q30MIN PRN Administration Hypoglycemia Protocol Docusate Sodium 100 mg 11/17/19 22:00 11/18/19 10:13 Colace PO 100 mg BID SMITH Administration Sodium Chloride 100 mls @ 999 mls/hr 11/17/19 16:42 Nacl 0.9% IV MIL PRN Hypotension Sodium Chloride 1,000 mls @ 100 mls/hr 11/17/19 18:45 11/18/19 05:25 Nacl 0.9% 1000 Ml IV 100 mls/hr DIRECT SMITH Administration Magnesium Hydroxide 30 ml 11/17/19 18:44 Milk Of Magnesia PO Q4H PRN Constipation Metoclopramide HCl 10 mg 11/17/19 18:44 Reglan PO Q6H PRN Nausea And Vomiting Morphine Sulfate 2 mg 11/17/19 18:44 Morphine IV Q4H PRN Pain, Moderate (4-6) Ondansetron HCl 4 mg 11/17/19 18:44 Zofran IV Q8H PRN Nausea And Vomiting Oxycodone/Acetaminophen 1 tab 11/17/19 18:44 Percocet 5/325 PO Q6H PRN Pain, Moderate (4-6) Promethazine HCl 25 mg 11/17/19 18:44 Phenergan [place] Q6H PRN Nausea And Vomiting Nutrition/Malnutrition Assess - Dietary Evaluation Nutrition/Malnutrition Findings: Nutrition Notes Start: 11/18/19 12:38 Freq: Status: Active Protocol: Document 11/18/19 12:38 APOLLO (Rec: 11/18/19 12:42 APOLLO [email or web address]) Nutrition Notes Need for Assessment generated from: MD Order Initial or Follow up Assessment Current Diagnosis CKD (stage V CKD),Hypertension ,Hyperlipidemia Other Pertinent Diagnosis Acute CVA Current Diet [facility] soft Labs/Tests reviewed Pertinent Medications reviewed Height 5 ft 7 in Weight 70.5 kg [place] Body Weight (kg) 61.36 BMI 24.3 Weight Status Appropriate Subjective/Other Information RD consulted for NTR recommendations and malnutrition. Pt from [place]. She failed 2 swallow tests yesterday. Needs swallow eval from CABINET [employer]; ordered yesterday. Burn Absent Trauma Absent Difficulty In Swallowing Minimum of two criteria No #1 Nutrition Diagnosis Swallowing difficulty Etiology recent CVA As Evidenced by Signs and Symptoms pt failed 2 swallow tests since admission Is patient on ventilator? No Is Patient Ambulatory and/or Out of Bed No REE-([facility]-confined to bed) 1550.448 Calculation Used for Recommendations [facility] Additional Notes Pro needs >1.2g/kg: >85g/day Fluid needs 1-1.5L/day Nutrition Intervention Change Diet Order: Maintain NPO status until evaluated by CABINET [employer]; add renal restriction once diet advanced Goal #1 Safe swallow before diet advancement Anticipated Discharge Needs: Renal diet Follow-Up By: 11/20/19 Additional Comments F/U: CABINET [employer] dwaine
[2019-11-18] MEDS ORDERED: LORazepam 2 MG/ML VIAL IV NR (20:15)
[2019-11-19] MEDS: SODIUM CHLORIDE 0.9% 1000 ML 1,000 ML IV SCH (00:30)
--- NOTE | 2019-11-19 08:13 | Progress Note ---
Assessment and Plan Assessment and plan: --Dysphagia; Failed bedside swallow, speech and swallow consulted Pending evaluation, continue n.p.o. status, IV fluids --Dysarthria; mild improvement since admission Speech therapy --Acute CVA; with left-sided weakness Follow MRI today Not a candidate for TPA, telemetry neurologist evaluated the patient Aspirin, statin, Neuro checks Neuro work-up with MRI, brain, CTA head and neck Echocardiogram, neurology consult PT OT rehab,Swallow evaluation, cardiac diet if swallow evaluation is normal Speech therapy/swallow evaluation requested --End-stage renal disease; on hemodialysis HD per schedule, nephrology consulted --Hypertension; Permissive hypertension per stroke protocol Closely monitor, PRN medications --Dyslipidemia; continue statin --History of CVA in the past with residual weakness Supportive care, PT OT --DVT prophylaxis; Lovenox --DNR status Monitor closely and adjust management as needed Follow neurology evaluation and recommendations Plan of care reviewed with the patient and her nurse History Interval history: Patient seen and examined at the bedside this morning patient's chart and medications reviewed Patient failed multiple bedside swallow eval's, speech and swallow consulted peds. Patient speech is much clearer today Alert and awake responding to simple questions appropriately In mild distress Vital signs noted Hospitalist Physical - Constitutional Vitals: Temp Pulse Resp BP Pulse Ox 98.0 F 81 20 133/80 100 11/19/19 04:11 11/19/19 04:11 11/19/19 04:11 11/19/19 04:11 11/19/19 04:11 General appearance: Present: no acute distress, well-nourished, other (slurred speech, left facial droop significantly improved) - EENT Eyes: Present: PERRL, EOM intact - Neck Neck: Present: supple, normal ROM - Respiratory Respiratory effort: normal Respiratory: bilateral: diminished, negative: rales, rhonchi, wheezing - Cardiovascular Rhythm: regular Heart Sounds: Present: S1 & S2 - Extremities Extremities: no ischemia, No edema - Abdominal General gastrointestinal: soft, non-tender, non-distended, normal bowel sounds - Integumentary Integumentary: Present: clear, warm - Psychiatric Psychiatric: appropriate mood/affect, cooperative - Neurologic Neurologic: moves all extremities HEART Score - HEART Score Troponin: Troponin T 0.235 ng/mL (0.00-0.029) H* 11/18/19 07:13 Results - Labs CBC & Chem 7: 11/17/19 10:04 11/18/19 07:13 Labs: Laboratory Last Values WBC 7.6 K/mm3 (4.5-11.0) 11/17/19 10:04 RBC 4.36 M/mm3 (3.65-5.03) 11/17/19 10:04 Hgb 12.2 gm/dl (10.1-14.3) 11/17/19 10:04 Hct 39.6 % (30.3-42.9) 11/17/19 10:04 MCV 91 fl (79-97) 11/17/19 10:04 MCH 28 pg (28-32) 11/17/19 10:04 MCHC 31 % (30-34) 11/17/19 10:04 RDW 16.9 % (13.2-15.2) H 11/17/19 10:04 Plt Count 181 K/mm3 (140-440) 11/17/19 10:04 Lymph % (Auto) 39.5 % (13.4-35.0) H 11/17/19 10:04 [place] % (Auto) 10.6 % (0.0-7.3) H 11/17/19 10:04 Eos % (Auto) 3.7 % (0.0-4.3) 11/17/19 10:04 Baso % (Auto) 0.6 % (0.0-1.8) 11/17/19 10:04 Lymph # 3.0 K/mm3 (1.2-5.4) 11/17/19 10:04 [place] # 0.8 K/mm3 (0.0-0.8) 11/17/19 10:04 Eos # 0.3 K/mm3 (0.0-0.4) 11/17/19 10:04 Baso # 0.0 K/mm3 (0.0-0.1) 11/17/19 10:04 Seg Neutrophils % 45.6 % (40.0-70.0) 11/17/19 10:04 Seg Neutrophils # 3.5 K/mm3 (1.8-7.7) 11/17/19 10:04 PT 13.8 Sec. (12.2-14.9) 11/17/19 10:04 INR 1.05 (0.87-1.13) 11/17/19 10:04 APTT 30.9 Sec. (24.2-36.6) 11/17/19 10:04 Thrombin Time 15.6 Sec. (15.1-19.6) 11/17/19 10:04 Sodium 141 mmol/L (137-145) 11/18/19 07:13 Potassium 5.0 mmol/L (3.6-5.0) 11/18/19 07:13 Chloride 99.0 mmol/L (98-107) 11/18/19 07:13 Carbon Dioxide 23 mmol/L (22-30) 11/18/19 07:13 Anion Gap 24 mmol/L 11/18/19 07:13 BUN 58 mg/dL (7-17) H 11/18/19 07:13 Creatinine 7.2 mg/dL (0.7-1.2) H 11/18/19 07:13 Estimated GFR 7 ml/min 11/18/19 07:13 BUN/Creatinine Ratio 8 % 11/18/19 07:13 Glucose 68 mg/dL (65-100) 11/18/19 07:13 POC Glucose 73 (70-105) 11/18/19 17:11 Hemoglobin A1c 4.2 % (4-6) 11/18/19 07:13 Calcium 9.6 mg/dL (8.4-10.2) 11/18/19 07:13 Phosphorus 4.90 mg/dL (2.5-4.5) H 11/17/19 10:33 Magnesium 2.60 mg/dL (1.7-2.3) H 11/17/19 10:33 Total Bilirubin 0.20 mg/dL (0.1-1.2) 11/17/19 10:33 Direct Bilirubin < 0.2 mg/dL (0-0.2) 11/17/19 10:33 Indirect Bilirubin 0.0 mg/dL 11/17/19 10:33 AST 15 units/L (5-40) 11/17/19 10:33 ALT 12 units/L (7-56) 11/17/19 10:33 Alkaline Phosphatase 80 units/L (35-129) 11/17/19 10:33 Total Creatine Kinase 20 units/L (30-135) L 11/18/19 07:13 CK-MB (CK-2) < 1.0 ng/mL (0.0-4.0) 11/18/19 07:13 CK-MB (CK-2) Rel Index 5.0 (0-4) H 11/18/19 07:13 Troponin T 0.235 ng/mL (0.00-0.029) H* 11/18/19 07:13 NT-Pro-B Natriuret Pep 1785 pg/mL (0-900) H 11/17/19 10:33 Total Protein 6.9 g/dL (6.3-8.2) 11/17/19 10:33 Albumin 3.7 g/dL (3.9-5) L 11/17/19 10:33 Albumin/Globulin Ratio 1.2 % 11/17/19 10:33 Triglycerides 141 mg/dL (2-149) 11/17/19 10:04 Cholesterol 207 mg/dL (50-199) H 11/17/19 10:04 LDL Cholesterol Direct 137 mg/dL (50-130) H 11/17/19 10:04 HDL Cholesterol 39 mg/dL (40-59) L 11/17/19 10:04 Cholesterol/HDL Ratio 5.30 % 11/17/19 10:04 Hepatitis A IgM Ab -1 (NonReactive) 11/18/19 07:13 Hep Bs Antigen Non-reactive (Negative) 11/18/19 07:13 Hep B Core IgM Ab Non-reactive (NonReactive) 11/18/19 07:13 Hepatitis C Antibody Non-reactive (NonReactive) 11/18/19 07:13 Kothari/IV: Voiding Method External Female Catheter IV Catheter Type [Right Chest] Permacath IV Catheter Type [Right INT / Saline Lock Antecubital] Active Medications - Current Medications Current Medications: Generic Name Dose Route Start Last Admin Trade Name Freq PRN Reason Stop Dose Admin Acetaminophen 650 mg 11/17/19 18:44 Tylenol PO Q4H PRN Pain, Mild (1-3) Albumin Human 12.5 gm 11/17/19 16:42 Alburx 25% (Albumin) IV MIL PRN Hypotension Aspirin 325 mg 11/18/19 10:00 11/18/19 10:13 Aspirin PO 325 mg QDAY SMITH Administration Atorvastatin Calcium 40 mg 11/17/19 22:00 11/18/19 00:30 Lipitor PO Not Given QHS SMITH Bisacodyl 10 mg 11/17/19 18:44 Dulcolax [place] QDAY PRN Constipation Dextrose 50 ml 11/18/19 17:31 11/18/19 18:12 D50w (25gm) Syringe IV 10 ml Q30MIN PRN Administration Hypoglycemia Protocol Docusate Sodium 100 mg 11/17/19 22:00 11/18/19 10:13 Colace PO 100 mg BID SMITH Administration Sodium Chloride 100 mls @ 999 mls/hr 11/17/19 16:42 Nacl 0.9% IV MIL PRN Hypotension Sodium Chloride 1,000 mls @ 100 mls/hr 11/17/19 18:45 11/19/19 00:30 Nacl 0.9% 1000 Ml IV 100 mls/hr DIRECT SMITH Administration Lorazepam 2 mg 11/18/19 20:15 Ativan IV 11/19/19 20:14 COBOL MAINFRAME DEVELOPER NR Magnesium Hydroxide 30 ml 11/17/19 18:44 Milk Of Magnesia PO Q4H PRN Constipation Metoclopramide HCl 10 mg 11/17/19 18:44 Reglan PO Q6H PRN Nausea And Vomiting Morphine Sulfate 2 mg 11/17/19 18:44 Morphine IV Q4H PRN Pain, Moderate (4-6) Ondansetron HCl 4 mg 11/17/19 18:44 Zofran IV Q8H PRN Nausea And Vomiting Oxycodone/Acetaminophen 1 tab 11/17/19 18:44 Percocet 5/325 PO Q6H PRN Pain, Moderate (4-6) Promethazine HCl 25 mg 11/17/19 18:44 Phenergan [place] Q6H PRN Nausea And Vomiting Nutrition/Malnutrition Assess - Dietary Evaluation Nutrition/Malnutrition Findings: Nutrition Notes Start: 11/18/19 12:38 Freq: Status: Active Protocol: Document 11/18/19 12:38 APOLLO (Rec: 11/18/19 12:42 APOLLO [id number] [email or web address]) Nutrition Notes Need for Assessment generated from: MD Order Initial or Follow up Assessment Current Diagnosis CKD (stage V CKD),Hypertension ,Hyperlipidemia Other Pertinent Diagnosis Acute CVA Current Diet [facility] soft Labs/Tests reviewed Pertinent Medications reviewed Height 5 ft 7 in Weight 70.5 kg [place] Body Weight (kg) 61.36 BMI 24.3 Weight Status Appropriate Subjective/Other Information RD consulted for NTR recommendations and malnutrition. Pt from [place]. She failed 2 swallow tests yesterday. Needs swallow eval from W[employer]; ordered yesterday. Burn Absent Trauma Absent Difficulty In Swallowing Minimum of two criteria No #1 Nutrition Diagnosis Swallowing difficulty Etiology recent CVA As Evidenced by Signs and Symptoms pt failed 2 swallow tests since admission Is patient on ventilator? No Is Patient Ambulatory and/or Out of Bed No REE-([facility]-confined to bed) 1550.448 Calculation Used for Recommendations [facility] Additional Notes Pro needs >1.2g/kg: >85g/day Fluid needs 1-1.5L/day Nutrition Intervention Change Diet Order: Maintain NPO status until evaluated by W[employer] SP[employer]AL [employer]ER; add renal restriction once diet advanced Goal #1 Safe swallow before diet advancement Anticipated Discharge Needs: Renal diet Follow-Up By: 11/20/19 Additional Comments F/U: WIRE SPIRAL B[employer]ER eval
[2019-11-19] MEDS: DOCUSATE SODIUM 100 MG CAP PO SCH ×3 (11:02→22:29)
[2019-11-19] MEDS: ASPIRIN 325 MG TAB PO SCH (11:06)
--- NOTE | 2019-11-19 13:12 | Progress Note ---
Assessment and Plan - Patient Problems (1) End-stage renal disease needing dialysis Current Visit: Yes Status: Acute Plan to address problem: Had HD yesterday Will now place on inpatient MWF HD schedule. Orders placed. (2) Aphasia due to acute cerebrovascular accident (CVA) Current Visit: Yes Status: Acute Plan to address problem: Follow up CTA reviewed. Neurology recommendations appreciated. Pending MRI/MRA at this time. 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 (5) Anemia due to chronic kidney disease, on chronic dialysis Current Visit: Yes Status: Chronic Plan to address problem: Current H/H levels are at goal. No acute indications for MYNOR therapy at this time. Subjective Date of service: 11/19/19 Interval history: No acute changes overnight. Tolerated HD well without any issues. Plan for HD tomorrow. Objective - Vital Signs Vital signs: Vital Signs - 12hr 11/19/19 11/19/19 11/19/19 04:11 07:50 12:56 Temperature 98.0 F 98.1 F 98.6 F Pulse Rate 81 71 Respiratory 20 18 18 Rate Blood Pressure 133/80 113/71 117/73 O2 Sat by Pulse 100 100 Oximetry - General Appearance General appearance: well-developed EENT: ATNC Neck: no JVD Respiratory: Present: Clear to Ascultation Cardiology: regular Gastrointestinal: normal Integumentary: no rash Neurologic: aphasia, facial droop Musculoskeletal: deferred Psychiatric: cooperative - Lab 11/17/19 10:04 11/18/19 07:13 Most recent lab results Calcium 9.6 mg/dL (8.4-10.2) 11/18/19 07:13 Phosphorus 4.90 mg/dL (2.5-4.5) H 11/17/19 10:33 Magnesium 2.60 mg/dL (1.7-2.3) H 11/17/19 10:33 - Allied health notes Allied health notes reviewed: nursing Medications & Allergies - Medications Allergies/Adverse Reactions: Allergies adhesive tape Allergy (Verified 11/17/19 09:47) Unknown Penicillins Allergy (Verified 11/17/19 09:46) Unknown shellfish derived Allergy (Verified 11/17/19 09:47) Unknown Seafood Allergy (Uncoded 11/17/19 09:47) Unknown Home Medications: Home Medications Medication Instructions Recorded Confirmed Last Taken Type Acetaminophen [Tylenol] 650 mg PO Q6HR PRN 11/18/19 11/18/19 Unknown History Aspirin BABY CHEW TAB 81 mg PO QDAY 11/18/19 Unknown History AtorvaSTATin 20 mg PO QPM 11/18/19 Unknown History Docusate Sodium 100 mg PO Q12HR 11/18/19 Unknown History Folic Acid 2 mg PO Q12HR 11/18/19 Unknown History Midodrine 10 mg PO Q8HR 11/18/19 Unknown History Senna 1 tab PO Q12HR 11/18/19 Unknown History sevelamer HCL [Sevelamer HCl] 800 mg PO 11/18/19 Unknown History Active Medications: Generic Name Dose Route Start Last Admin Trade Name Freq PRN Reason Stop Dose Admin Acetaminophen 650 mg 11/17/19 18:44 Tylenol PO Q4H PRN Pain, Mild (1-3) Albumin Human 12.5 gm 11/17/19 16:42 Alburx 25% (Albumin) IV MIL PRN Hypotension Aspirin 325 mg 11/18/19 10:00 11/19/19 11:06 Aspirin PO Not Given QDAY SMITH Atorvastatin Calcium 40 mg 11/17/19 22:00 11/19/19 11:02 Lipitor PO Not Given QHS SMITH Bisacodyl 10 mg 11/17/19 18:44 Dulcolax [place] QDAY PRN Constipation Dextrose 50 ml 11/18/19 17:31 11/18/19 18:12 D50w (25gm) Syringe IV 10 ml Q30MIN PRN Administration Hypoglycemia Protocol Docusate Sodium 100 mg 11/17/19 22:00 11/19/19 11:03 Colace PO Not Given BID SMITH Sodium Chloride 100 mls @ 999 mls/hr 11/17/19 16:42 Nacl 0.9% IV MIL PRN Hypotension Sodium Chloride 1,000 mls @ 100 mls/hr 11/17/19 18:45 11/19/19 00:30 Nacl 0.9% 1000 Ml IV 100 mls/hr DIRECT SMITH Administration Lorazepam 2 mg 11/18/19 20:15 Ativan IV 11/19/19 20:14 SUPERVISOR WORD PROCESSING NR Magnesium Hydroxide 30 ml 11/17/19 18:44 Milk Of Magnesia PO Q4H PRN Constipation Metoclopramide HCl 10 mg 11/17/19 18:44 Reglan PO Q6H PRN Nausea And Vomiting Morphine Sulfate 2 mg 11/17/19 18:44 Morphine IV Q4H PRN Pain, Moderate (4-6) Ondansetron HCl 4 mg 11/17/19 18:44 Zofran IV Q8H PRN Nausea And Vomiting Oxycodone/Acetaminophen 1 tab 11/17/19 18:44 Percocet 5/325 PO Q6H PRN Pain, Moderate (4-6) Promethazine HCl 25 mg 11/17/19 18:44 Phenergan [place] Q6H PRN Nausea And Vomiting
--- NOTE | 2019-11-19 16:34 | Magnetic Resonance Report ---
MR brain wo con INDICATION / CLINICAL INFORMATION: 64 years Female; Acute CVA. TECHNIQUE: Multiplanar, multisequence MR images of the brain were obtained. COMPARISON: The study is compared to the earlier CT of 11/17/2019. FINDINGS: BRAIN / INTRACRANIAL CONTENTS: The motion degrades the image quality despite using a fast acquisition sequences. However, there is acute infarct along the right frontoparietal junction involving the ins mike measuring possibly 5.6 cm in greatest AP dimension. Foci extend along the right pre and postcentr al gyri. There is otherwise extensive cerebral and pontine white matter disease most consistent with chronic m icrovascular angiopathy. There are old infarcts involving occipital lobes and cerebral along the bord er zone vascular distributions. There is otherwise mild cerebral atrophy. The ventricular system is c orrespondingly appropriate in size and configuration. The chronic ischemic changes involving the body of the corpus callosum. There appears be small subdural collection along the posterior right cerebral convexity measuring 2-3 mm in greatest transverse dimension. This finding appears isointense on T1 and hyperintense on T2-we ighted imaging and indicative of small subdural hematoma. There is no significant mass effect. CRANIOCERVICAL JUNCTION: No significant abnormality. VASCULAR FLOW-VOIDS: The distal internal carotid arteries and vertebrobasilar system grossly demonstr ate appropriate signal voids. ORBITS: No significant abnormality of visualized orbits. SINUSES / MASTOIDS: No significant abnormality in the visualized paranasal sinuses or mastoid air teressa ls. ADDITIONAL FINDINGS: None. IMPRESSION: 1. There is acute infarct extending along the right frontoparietal junction and right insula as detai led above. 2. There is a small subdural hematoma extending along the posterior right cerebral convexity, also de scribed above. 3 at. There is otherwise extensive chronic microvascular angiopathy and old infarcts at. Signer Name: Oscar Forman MD Signed: 11/19/2019 4:30 PM Workstation Name: [id number]
--- NOTE | 2019-11-19 18:50 | Event Note ---
Date: 11/19/19 I called patient's daughter Ms. Kisha Blank At [phone] and discussed the patient's condition, tests and imaging studies reports. MRI findings, treatment plan CODE STATUS, consultants recommendations, dysphagia ,swallow evaluation, possible PEG placement If swallow studies are abnormal and discharge planning. I answered all her questions and encouraged her to call back with questions and concerns. Informed patient's nurse
--- NOTE | 2019-11-19 20:30 | Progress Note ---
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 CT head; no acute abnormality, extensive chronic changes CTA head; no indication of large vessel occlusion or hemodynamically significant stenosis of intracranial vessels CTA neck; no indication of hemodynamically significant stenosis at the carotid bifurcations --Dysphagia; Failed bedside swallow, speech and swallow evaluation noted and appreciated Recommend pured diet, aspiration precautions --Dysarthria; mild improvement since admission Speech therapy --Acute CVA; with left-sided weakness Follow MRI today Not a candidate for TPA, telemetry neurologist evaluated the patient Aspirin, statin, Neuro checks Neuro work-up with MRI, brain, CTA head and neck Echocardiogram, neurology consult PT OT rehab,Swallow evaluation, cardiac diet if swallow evaluation is normal Speech therapy/swallow evaluation requested --End-stage renal disease; on hemodialysis HD per schedule, nephrology consulted --Hypertension; Permissive hypertension per stroke protocol Closely monitor, PRN medications --Dyslipidemia; continue statin --History of CVA in the past with residual weakness Supportive care, PT OT --DVT prophylaxis; Lovenox --DNR status Monitor closely and adjust management as needed Follow neurology evaluation and recommendations Plan of care reviewed with the patient and her nurse History Interval history: I have seen and examined the patient this morning Patient's medications reviewed Speech significantly improved Evaluation recommended pured diet Vital signs reviewed Hospitalist Physical - Constitutional Vitals: Temp Pulse Resp BP Pulse Ox 98.6 F 71 18 117/73 100 11/19/19 12:56 11/19/19 10:00 11/19/19 12:56 11/19/19 12:56 11/19/19 07:50 General appearance: Present: no acute distress, well-nourished, other (slurred speech, left facial droop significantly improved) - EENT Eyes: Present: PERRL, EOM intact - Neck Neck: Present: supple, normal ROM - Respiratory Respiratory effort: normal Respiratory: bilateral: diminished, negative: rales, rhonchi, wheezing - Cardiovascular Rhythm: regular Heart Sounds: Present: S1 & S2 - Extremities Extremities: no ischemia, abnormal (Residual weakness) - Abdominal General gastrointestinal: soft, non-tender, non-distended, normal bowel sounds - Integumentary Integumentary: Present: clear, warm - Psychiatric Psychiatric: appropriate mood/affect, cooperative - Neurologic Neurologic: other (CVA with residual weakness, slow speech) HEART Score - HEART Score Troponin: Troponin T 0.235 ng/mL (0.00-0.029) H* 11/18/19 07:13 Results - Labs CBC & Chem 7: 11/17/19 10:04 11/18/19 07:13 Labs: Laboratory Last Values WBC 7.6 K/mm3 (4.5-11.0) 11/17/19 10:04 RBC 4.36 M/mm3 (3.65-5.03) 11/17/19 10:04 Hgb 12.2 gm/dl (10.1-14.3) 11/17/19 10:04 Hct 39.6 % (30.3-42.9) 11/17/19 10:04 MCV 91 fl (79-97) 11/17/19 10:04 MCH 28 pg (28-32) 11/17/19 10:04 MCHC 31 % (30-34) 11/17/19 10:04 RDW 16.9 % (13.2-15.2) H 11/17/19 10:04 Plt Count 181 K/mm3 (140-440) 11/17/19 10:04 Lymph % (Auto) 39.5 % (13.4-35.0) H 11/17/19 10:04 Mckean % (Auto) 10.6 % (0.0-7.3) H 11/17/19 10:04 Eos % (Auto) 3.7 % (0.0-4.3) 11/17/19 10:04 Baso % (Auto) 0.6 % (0.0-1.8) 11/17/19 10:04 Lymph # 3.0 K/mm3 (1.2-5.4) 11/17/19 10:04 Mckean # 0.8 K/mm3 (0.0-0.8) 11/17/19 10:04 Eos # 0.3 K/mm3 (0.0-0.4) 11/17/19 10:04 Baso # 0.0 K/mm3 (0.0-0.1) 11/17/19 10:04 Seg Neutrophils % 45.6 % (40.0-70.0) 11/17/19 10:04 Seg Neutrophils # 3.5 K/mm3 (1.8-7.7) 11/17/19 10:04 PT 13.8 Sec. (12.2-14.9) 11/17/19 10:04 INR 1.05 (0.87-1.13) 11/17/19 10:04 APTT 30.9 Sec. (24.2-36.6) 11/17/19 10:04 Thrombin Time 15.6 Sec. (15.1-19.6) 11/17/19 10:04 Sodium 141 mmol/L (137-145) 11/18/19 07:13 Potassium 5.0 mmol/L (3.6-5.0) 11/18/19 07:13 Chloride 99.0 mmol/L (98-107) 11/18/19 07:13 Carbon Dioxide 23 mmol/L (22-30) 11/18/19 07:13 Anion Gap 24 mmol/L 11/18/19 07:13 BUN 58 mg/dL (7-17) H 11/18/19 07:13 Creatinine 7.2 mg/dL (0.7-1.2) H 11/18/19 07:13 Estimated GFR 7 ml/min 11/18/19 07:13 BUN/Creatinine Ratio 8 % 11/18/19 07:13 Glucose 68 mg/dL (65-100) 11/18/19 07:13 POC Glucose 73 (70-105) 11/18/19 17:11 Hemoglobin A1c 4.2 % (4-6) 11/18/19 07:13 Calcium 9.6 mg/dL (8.4-10.2) 11/18/19 07:13 Phosphorus 4.90 mg/dL (2.5-4.5) H 11/17/19 10:33 Magnesium 2.60 mg/dL (1.7-2.3) H 11/17/19 10:33 Total Bilirubin 0.20 mg/dL (0.1-1.2) 11/17/19 10:33 Direct Bilirubin < 0.2 mg/dL (0-0.2) 11/17/19 10:33 Indirect Bilirubin 0.0 mg/dL 11/17/19 10:33 AST 15 units/L (5-40) 11/17/19 10:33 ALT 12 units/L (7-56) 11/17/19 10:33 Alkaline Phosphatase 80 units/L (35-129) 11/17/19 10:33 Total Creatine Kinase 20 units/L (30-135) L 11/18/19 07:13 CK-MB (CK-2) < 1.0 ng/mL (0.0-4.0) 11/18/19 07:13 CK-MB (CK-2) Rel Index 5.0 (0-4) H 11/18/19 07:13 Troponin T 0.235 ng/mL (0.00-0.029) H* 11/18/19 07:13 NT-Pro-B Natriuret Pep 1785 pg/mL (0-900) H 11/17/19 10:33 Total Protein 6.9 g/dL (6.3-8.2) 11/17/19 10:33 Albumin 3.7 g/dL (3.9-5) L 11/17/19 10:33 Albumin/Globulin Ratio 1.2 % 11/17/19 10:33 Triglycerides 141 mg/dL (2-149) 11/17/19 10:04 Cholesterol 207 mg/dL (50-199) H 11/17/19 10:04 LDL Cholesterol Direct 137 mg/dL (50-130) H 11/17/19 10:04 HDL Cholesterol 39 mg/dL (40-59) L 11/17/19 10:04 Cholesterol/HDL Ratio 5.30 % 11/17/19 10:04 Hepatitis A IgM Ab -1 (NonReactive) 11/18/19 07:13 Hep Bs Antigen Non-reactive (Negative) 11/18/19 07:13 Hep B Core IgM Ab Non-reactive (NonReactive) 11/18/19 07:13 Hepatitis C Antibody Non-reactive (NonReactive) 11/18/19 07:13 Kothari/IV: Voiding Method External Female Catheter IV Catheter Type [Left Upper Mid-line arm] IV Catheter Type [Right Chest] Permacath IV Catheter Type [Right INT / Saline Lock Antecubital] Active Medications - Current Medications Current Medications: Generic Name Dose Route Start Last Admin Trade Name Freq PRN Reason Stop Dose Admin Acetaminophen 650 mg 11/17/19 18:44 Tylenol PO Q4H PRN Pain, Mild (1-3) Albumin Human 12.5 gm 11/17/19 16:42 Alburx 25% (Albumin) IV MIL PRN Hypotension Aspirin 325 mg 11/18/19 10:00 11/19/19 11:06 Aspirin PO Not Given QDAY SMITH Atorvastatin Calcium 40 mg 11/17/19 22:00 11/19/19 11:02 Lipitor PO Not Given QHS [facility] Bisacodyl 10 mg 11/17/19 18:44 Dulcolax PA QDAY PRN Constipation Dextrose 50 ml 11/18/19 17:31 11/18/19 18:12 D50w (25gm) Syringe IV 10 ml Q30MIN PRN Administration Hypoglycemia Protocol Docusate Sodium 100 mg 11/17/19 22:00 11/19/19 11:03 Colace PO Not Given BID SMITH Sodium Chloride 100 mls @ 999 mls/hr 11/17/19 16:42 Nacl 0.9% IV MIL PRN Hypotension Sodium Chloride 1,000 mls @ 100 mls/hr 11/17/19 18:45 11/19/19 00:30 Nacl 0.9% 1000 Ml IV 100 mls/hr DIRECT SMITH Administration Magnesium Hydroxide 30 ml 11/17/19 18:44 Milk Of Magnesia PO Q4H PRN Constipation Metoclopramide HCl 10 mg 11/17/19 18:44 Reglan PO Q6H PRN Nausea And Vomiting Morphine Sulfate 2 mg 11/17/19 18:44 Morphine IV Q4H PRN Pain, Moderate (4-6) Ondansetron HCl 4 mg 11/17/19 18:44 Zofran IV Q8H PRN Nausea And Vomiting Oxycodone/Acetaminophen 1 tab 11/17/19 18:44 Percocet 5/325 PO Q6H PRN Pain, Moderate (4-6) Promethazine HCl 25 mg 11/17/19 18:44 Phenergan PA Q6H PRN Nausea And Vomiting Nutrition/Malnutrition Assess - Dietary Evaluation Nutrition/Malnutrition Findings: Nutrition Notes Start: 11/18/19 12:38 Freq: Status: Active Protocol: Document 11/18/19 12:38 APOLLO (Rec: 11/18/19 12:42 APOLLO [email or web address]) Nutrition Notes Need for Assessment generated from: MD Order Initial or Follow up Assessment Current Diagnosis CKD (stage V CKD),Hypertension ,Hyperlipidemia Other Pertinent Diagnosis Acute CVA Current Diet [facility] soft Labs/Tests reviewed Pertinent Medications reviewed Height 5 ft 7 in Weight 70.5 kg [place] Body Weight (kg) 61.36 BMI 24.3 Weight Status Appropriate Subjective/Other Information RD consulted for NTR recommendations and malnutrition. Pt from [place]. She failed 2 swallow tests yesterday. Needs swallow eval from AIRLINE MECHANIC; ordered yesterday. Burn Absent Trauma Absent Difficulty In Swallowing Minimum of two criteria No #1 Nutrition Diagnosis Swallowing difficulty Etiology recent CVA As Evidenced by Signs and Symptoms pt failed 2 swallow tests since admission Is patient on ventilator? No Is Patient Ambulatory and/or Out of Bed No REE-([facility]-confined to bed) 2792.448 Calculation Used for Recommendations [facility] Additional Notes Pro needs >1.2g/kg: >85g/day Fluid needs 1-1.5L/day Nutrition Intervention Change Diet Order: Maintain NPO status until evaluated by AIRLINE MECHANIC; add renal restriction once diet advanced Goal #1 Safe swallow before diet advancement Anticipated Discharge Needs: Renal diet Follow-Up By: 11/20/19 Additional Comments F/U: AIRLINE MECHANIC eval
[2019-11-20] MEDS: SODIUM CHLORIDE 0.9% 1000 ML 1,000 ML IV SCH (02:05)
[2019-11-20] MEDS ORDERED: SODIUM CHLORIDE 0.9% 100 ML IV PRN (07:54)
[2019-11-20] MEDS: ASPIRIN 325 MG TAB PO SCH (09:13)
[2019-11-20] MEDS: DOCUSATE SODIUM 100 MG CAP PO SCH ×3 (09:14→22:29)
--- NOTE | 2019-11-20 11:26 | Progress Note ---
Assessment and Plan - Patient Problems (1) Aphasia due to acute cerebrovascular accident (CVA) Current Visit: Yes Status: Acute Plan to address problem: Continue management by primary attending (2) End-stage renal disease needing dialysis Current Visit: Yes Status: Acute Plan to address problem: continue hemodialysis on Wednesday, Wednesday and Wednesday schedule. (3) Anemia due to chronic kidney disease, on chronic dialysis Current Visit: Yes Status: Chronic Plan to address problem: Give erythropoietin on dialysis (4) Hypertensive chronic kidney disease with stage 5 chronic kidney disease or end stage renal disease Current Visit: Yes Status: Chronic Plan to address problem: follow-up blood pressure on current medications (5) Secondary hyperparathyroidism (of renal origin) Current Visit: Yes Status: Chronic Subjective Date of service: 11/20/19 Principal diagnosis: End-stage renal disease Interval history: Patient seen lying in bed she has no complaints. She wants to go home. She states she wants to go be with her mother and her daughter. She states that her mother is 83 years old Objective - Exam Narrative Exam: Middle-aged -[place] female lying in bed in no acute distress HEENT: NCAT, pink oral mucous membrane Neck: Supple, no venous distention CVS: S1S2 RRR with no murmur, rub or gallop Chest: Clear to auscultation Abdomen: Protuberant, soft, nontender, no organomegaly, bowel sounds are present Extremities: No edema Neuro: Awake, alert left hemiplegia, - Vital Signs Vital signs: Vital Signs - 12hr 11/19/19 11/20/19 11/20/19 23:47 00:00 03:59 Temperature 98.0 F 98.0 F Pulse Rate 78 75 78 Respiratory 18 18 Rate Blood Pressure 140/64 130/62 O2 Sat by Pulse 98 59 L Oximetry 11/20/19 11/20/19 08:11 10:00 Temperature 97.9 F Pulse Rate 67 59 L Respiratory 18 Rate Blood Pressure 126/68 O2 Sat by Pulse 93 Oximetry - Lab 11/17/19 10:04 11/18/19 07:13 Most recent lab results Calcium 9.6 mg/dL (8.4-10.2) 11/18/19 07:13 Phosphorus 4.90 mg/dL (2.5-4.5) H 11/17/19 10:33 Magnesium 2.60 mg/dL (1.7-2.3) H 11/17/19 10:33 Medications & Allergies - Medications Allergies/Adverse Reactions: Allergies adhesive tape Allergy (Verified 11/17/19 09:47) Unknown Penicillins Allergy (Verified 11/17/19 09:46) Unknown shellfish derived Allergy (Verified 11/17/19 09:47) Unknown Seafood Allergy (Uncoded 11/17/19 09:47) Unknown Home Medications: Home Medications Medication Instructions Recorded Confirmed Last Taken Type Acetaminophen [Tylenol] 650 mg PO Q6HR PRN 11/18/19 11/18/19 Unknown History Aspirin BABY CHEW TAB 81 mg PO QDAY 11/18/19 Unknown History AtorvaSTATin 20 mg PO QPM 11/18/19 Unknown History Docusate Sodium 100 mg PO Q12HR 11/18/19 Unknown History Folic Acid 2 mg PO Q12HR 11/18/19 Unknown History Midodrine 10 mg PO Q8HR 11/18/19 Unknown History Senna 1 tab PO Q12HR 11/18/19 Unknown History sevelamer HCL [Sevelamer HCl] 800 mg PO 11/18/19 Unknown History Active Medications: Generic Name Dose Route Start Last Admin Trade Name Freq PRN Reason Stop Dose Admin Acetaminophen 650 mg 11/17/19 18:44 Tylenol PO Q4H PRN Pain, Mild (1-3) Albumin Human 12.5 gm 11/17/19 16:42 Alburx 25% (Albumin) IV MIL PRN Hypotension Aspirin 325 mg 11/18/19 10:00 11/20/19 09:13 Aspirin PO 325 mg QDAY SMITH Administration Atorvastatin Calcium 40 mg 11/17/19 22:00 11/19/19 22:29 Lipitor PO Not Given QHS SMITH Bisacodyl 10 mg 11/17/19 18:44 Dulcolax OR QDAY PRN Constipation Dextrose 50 ml 11/18/19 17:31 11/18/19 18:12 D50w (25gm) Syringe IV 10 ml Q30MIN PRN Administration Hypoglycemia Protocol Docusate Sodium 100 mg 11/17/19 22:00 11/20/19 09:14 Colace PO Not Given BID SMITH Sodium Chloride 1,000 mls @ 100 mls/hr 11/17/19 18:45 11/20/19 02:05 Nacl 0.9% 1000 Ml IV 100 mls/hr DIRECT SMITH Administration Sodium Chloride 100 mls @ 999 mls/hr 11/20/19 07:54 Nacl 0.9% IV MIL PRN Hypotension Magnesium Hydroxide 30 ml 11/17/19 18:44 Milk Of Magnesia PO Q4H PRN Constipation Metoclopramide HCl 10 mg 11/17/19 18:44 Reglan PO Q6H PRN Nausea And Vomiting Morphine Sulfate 2 mg 11/17/19 18:44 Morphine IV Q4H PRN Pain, Moderate (4-6) Ondansetron HCl 4 mg 11/17/19 18:44 Zofran IV Q8H PRN Nausea And Vomiting Oxycodone/Acetaminophen 1 tab 11/17/19 18:44 Percocet 5/325 PO Q6H PRN Pain, Moderate (4-6) Promethazine HCl 25 mg 11/17/19 18:44 Phenergan OR Q6H PRN Nausea And Vomiting
--- NOTE | 2019-11-21 09:31 | Progress Note ---
Assessment and Plan - Patient Problems (1) Stroke (cerebrum) Current Visit: Yes Status: Acute Qualifiers: CVA mechanism: unspecified Qualified Code(s): I63.9 - Cerebral infarction, unspecified Plan to address problem: - 11/18 MRI: Acute infarct extending along the right frontoparietal junction and right insula, small subdural hematoma extending along the posterior right cerebral convexity, extensive chronic microvascular angiopathy and old infarcts - 11/16 CTH: No acute abnormality. Extensive chronic change - 11/16 CTA Head: No indication of large vessel occlusion or hemodynamically significant stenosis intracranial is observed CTA head - 11/16 CTA neck: No indication of hemodynamically significant stenosis at the carotid bifurcations or elsewhere. - 11/16 Echo: EF of 50-55% with mild left ventricular limitation, MR and TR. - 11/20 Cspine MRI pending - Continue Aspirin, Statin - PT/OT/ ST evaluation for dyspahigia and dysarthia - Neuro checks per protocol - Fall and Aspiration precautions (2) End-stage renal disease needing dialysis Current Visit: Yes Status: Acute Plan to address problem: - HD MWF - Avoid nephrotoxins - Renally dose medications - Epogen with HD (3) Hyperlipemia Current Visit: Yes Status: Acute Plan to address problem: - Continue Lipitor 40mg (4) DVT prophylaxis Current Visit: Yes Status: Acute Plan to address problem: - Heparin subq - SCDs while in bed (5) DNR (do not resuscitate) Current Visit: Yes Status: Acute History Interval history: This is 64 year old female with a CVA (10 years ago) with residual left-sided weakness, ESRD, HLD, HTN who presented to [facility] on 11/16 with sudden onset of slurred speech and left-sided weakness since this morning and left facial droop. Neurology was consulted and MRI shows acute infarct extending along the right frontoparietal junction and right insular small subdural hematoma extending along the posterior right cerebral convexity, chronic microvascular angiopathy and old infarcts. PT/OT/rehab/ST were consulted. This morning she is not in any acute distress and no acute events were reported by nursing staff. 11/19: Slight improvement of speech 11/18: HD 11/17: HD Hospitalist Physical - Constitutional Vitals: Temp Pulse Resp BP Pulse Ox 97.0 F L 79 20 141/91 98 11/21/19 08:25 11/21/19 08:46 11/21/19 08:25 11/21/19 08:25 11/21/19 08:25 General appearance: Present: no acute distress, well-nourished, other (slurred speech, left facial droop significantly improved) HEART Score - HEART Score Troponin: Troponin T 0.235 ng/mL (0.00-0.029) H* 11/18/19 07:13 Results - Labs CBC & Chem 7: 11/17/19 10:04 11/18/19 07:13 Labs: Laboratory Last Values WBC 7.6 K/mm3 (4.5-11.0) 11/17/19 10:04 RBC 4.36 M/mm3 (3.65-5.03) 11/17/19 10:04 Hgb 12.2 gm/dl (10.1-14.3) 11/17/19 10:04 Hct 39.6 % (30.3-42.9) 11/17/19 10:04 MCV 91 fl (79-97) 11/17/19 10:04 MCH 28 pg (28-32) 11/17/19 10:04 MCHC 31 % (30-34) 11/17/19 10:04 RDW 16.9 % (13.2-15.2) H 11/17/19 10:04 Plt Count 181 K/mm3 (140-440) 11/17/19 10:04 Lymph % (Auto) 39.5 % (13.4-35.0) H 11/17/19 10:04 Storey % (Auto) 10.6 % (0.0-7.3) H 11/17/19 10:04 Eos % (Auto) 3.7 % (0.0-4.3) 11/17/19 10:04 Baso % (Auto) 0.6 % (0.0-1.8) 11/17/19 10:04 Lymph # 3.0 K/mm3 (1.2-5.4) 11/17/19 10:04 Storey # 0.8 K/mm3 (0.0-0.8) 11/17/19 10:04 Eos # 0.3 K/mm3 (0.0-0.4) 11/17/19 10:04 Baso # 0.0 K/mm3 (0.0-0.1) 11/17/19 10:04 Seg Neutrophils % 45.6 % (40.0-70.0) 11/17/19 10:04 Seg Neutrophils # 3.5 K/mm3 (1.8-7.7) 11/17/19 10:04 PT 13.8 Sec. (12.2-14.9) 11/17/19 10:04 INR 1.05 (0.87-1.13) 11/17/19 10:04 APTT 30.9 Sec. (24.2-36.6) 11/17/19 10:04 Thrombin Time 15.6 Sec. (15.1-19.6) 11/17/19 10:04 Sodium 141 mmol/L (137-145) 11/18/19 07:13 Potassium 5.0 mmol/L (3.6-5.0) 11/18/19 07:13 Chloride 99.0 mmol/L (98-107) 11/18/19 07:13 Carbon Dioxide 23 mmol/L (22-30) 11/18/19 07:13 Anion Gap 24 mmol/L 11/18/19 07:13 BUN 58 mg/dL (7-17) H 11/18/19 07:13 Creatinine 7.2 mg/dL (0.7-1.2) H 11/18/19 07:13 Estimated GFR 7 ml/min 11/18/19 07:13 BUN/Creatinine Ratio 8 % 11/18/19 07:13 Glucose 68 mg/dL (65-100) 11/18/19 07:13 POC Glucose 96 (70-105) 11/20/19 11:30 Hemoglobin A1c 4.2 % (4-6) 11/18/19 07:13 Calcium 9.6 mg/dL (8.4-10.2) 11/18/19 07:13 Phosphorus 4.90 mg/dL (2.5-4.5) H 11/17/19 10:33 Magnesium 2.60 mg/dL (1.7-2.3) H 11/17/19 10:33 Total Bilirubin 0.20 mg/dL (0.1-1.2) 11/17/19 10:33 Direct Bilirubin < 0.2 mg/dL (0-0.2) 11/17/19 10:33 Indirect Bilirubin 0.0 mg/dL 11/17/19 10:33 AST 15 units/L (5-40) 11/17/19 10:33 ALT 12 units/L (7-56) 11/17/19 10:33 Alkaline Phosphatase 80 units/L (35-129) 11/17/19 10:33 Total Creatine Kinase 20 units/L (30-135) L 11/18/19 07:13 CK-MB (CK-2) < 1.0 ng/mL (0.0-4.0) 11/18/19 07:13 CK-MB (CK-2) Rel Index 5.0 (0-4) H 11/18/19 07:13 Troponin T 0.235 ng/mL (0.00-0.029) H* 11/18/19 07:13 NT-Pro-B Natriuret Pep 1785 pg/mL (0-900) H 11/17/19 10:33 Total Protein 6.9 g/dL (6.3-8.2) 11/17/19 10:33 Albumin 3.7 g/dL (3.9-5) L 11/17/19 10:33 Albumin/Globulin Ratio 1.2 % 11/17/19 10:33 Triglycerides 141 mg/dL (2-149) 11/17/19 10:04 Cholesterol 207 mg/dL (50-199) H 11/17/19 10:04 LDL Cholesterol Direct 137 mg/dL (50-130) H 11/17/19 10:04 HDL Cholesterol 39 mg/dL (40-59) L 11/17/19 10:04 Cholesterol/HDL Ratio 5.30 % 11/17/19 10:04 Hepatitis A IgM Ab -1 (NonReactive) 11/18/19 07:13 Hep Bs Antigen Non-reactive (Negative) 11/18/19 07:13 Hep B Core IgM Ab Non-reactive (NonReactive) 11/18/19 07:13 Hepatitis C Antibody Non-reactive (NonReactive) 11/18/19 07:13 Kothari/IV: Voiding Method External Female Catheter IV Catheter Type [Left Upper Mid-line arm] IV Catheter Type [Right Chest] Permacath IV Catheter Type [Right INT / Saline Lock Antecubital] Active Medications - Current Medications Current Medications: Generic Name Dose Route Start Last Admin Trade Name Freq PRN Reason Stop Dose Admin Acetaminophen 650 mg 11/17/19 18:44 Tylenol PO Q4H PRN Pain, Mild (1-3) Albumin Human 12.5 gm 11/17/19 16:42 Alburx 25% (Albumin) IV MIL PRN Hypotension Aspirin 325 mg 11/18/19 10:00 11/20/19 09:13 Aspirin PO 325 mg QDAY SMITH Administration Atorvastatin Calcium 40 mg 11/17/19 22:00 11/20/19 22:29 Lipitor PO 40 mg QHS SMITH Administration Bisacodyl 10 mg 11/17/19 18:44 Dulcolax [place] QDAY PRN Constipation Dextrose 50 ml 11/18/19 17:31 11/18/19 18:12 D50w (25gm) Syringe IV 10 ml Q30MIN PRN Administration Hypoglycemia Protocol Docusate Sodium 100 mg 11/17/19 22:00 11/20/19 22:00 Colace PO Not Given BID SMITH Sodium Chloride 1,000 mls @ 100 mls/hr 11/17/19 18:45 11/20/19 02:05 Nacl 0.9% 1000 Ml IV 100 mls/hr DIRECT SMITH Administration Sodium Chloride 100 mls @ 999 mls/hr 11/20/19 07:54 Nacl 0.9% IV MIL PRN Hypotension Magnesium Hydroxide 30 ml 11/17/19 18:44 Milk Of Magnesia PO Q4H PRN Constipation Metoclopramide HCl 10 mg 11/17/19 18:44 Reglan PO Q6H PRN Nausea And Vomiting Morphine Sulfate 2 mg 11/17/19 18:44 Morphine IV Q4H PRN Pain, Moderate (4-6) Ondansetron HCl 4 mg 11/17/19 18:44 Zofran IV Q8H PRN Nausea And Vomiting Oxycodone/Acetaminophen 1 tab 11/17/19 18:44 Percocet 5/325 PO Q6H PRN Pain, Moderate (4-6) Promethazine HCl 25 mg 11/17/19 18:44 Phenergan [place] Q6H PRN Nausea And Vomiting Nutrition/Malnutrition Assess - Dietary Evaluation Nutrition/Malnutrition Findings: Nutrition Notes Start: 11/18/19 12:38 Freq: Status: Active Protocol: Document 11/20/19 14:10 APOLLO (Rec: 11/20/19 14:12 APOLLO [email or web address]) Nutrition Notes Initial or Follow up Brief Note Current Diet Pureed Subjective/Other Information Per PROCUREMENT SPECIALIST eval yesterday, pt appropriate for pureed diet with thin liquids. Nutrition Intervention Follow-Up By: 11/23/19 Additional Comments F/U: intakes, need for ONS
[2019-11-21] MEDS: DOCUSATE SODIUM 100 MG CAP PO SCH ×2 (09:37→21:21)
[2019-11-21] MEDS: ASPIRIN 325 MG TAB PO SCH (09:37)
--- NOTE | 2019-11-21 09:37 | Consultation ---
History of Present Illness Consult date: 11/21/19 Reason for Consult: left side weakness History of present illness: 64-year-old -[place] female patient with significant past medical hist ory of CVA 10 years ago with left-sided residual weakness presented to the emergency room with history of sudden onset of slurred speech and left-sided weakness since this morning as well as left facial droop. In the past patient was able to walk with the help of a cane and rolling walker, with coherent speech., Code stroke was called, telemetry neurologist has evaluated the patient, patient was not a candidate for TPA, recommend evaluation and management per stroke protocol CT head without contrast; no acute abnormality, extensive old findings Patient also has end-stage renal disease on hemodialysis as well as history of seizure disorder Denies chest pain or shortness of breath, denies headache or dizziness Denies nausea vomiting or abdominal pain. In ER CT brain is remarkable for old encephalomalacia right side MRI brain is suggestive of right acute fronto parietal infarct with small subdurall hematoma !! lab are remarkable for bun/cr. 50/7.1 tropo# 0.233 LDL#137 he is with hx of seizure ? on no medication and hx of psychic ?? Echo 50-55% EF with mild left ventricular limitation.plus MR,TR. Past History Past Medical History: dialysis, ESRD, hypertension, hyperlipidemia, stroke (residual weakness), other (psych disorder) Past Surgical History: No surgical history Social history: denies: smoking, alcohol abuse, prescription drug abuse Family history: hypertension Medications and Allergies Allergies Allergy/AdvReac Type Severity Reaction Status Date / Time adhesive tape Allergy Unknown Verified 11/17/19 09:47 Penicillins Allergy Unknown Verified 11/17/19 09:46 shellfish derived Allergy Unknown Verified 11/17/19 09:47 Seafood Allergy Unknown Uncoded 11/17/19 09:47 Review of Systems Constitutional: weakness, other, no weight loss, no weight gain, no fever, no chills Ears, nose, mouth and throat: other (Slurred speech) Cardiovascular: no chest pain, no orthopnea, no palpitations Respiratory: no cough with sputum, no shortness of breath Gastrointestinal: no abdominal pain, no nausea, no vomiting Genitourinary Female: no flank pain, no dysuria Musculoskeletal: no myalgias, no arthritis Integumentary: no rash, no lesions Neurological: weakness (Left-sided weakness), other (Slurred speech) Psychiatric: no anxiety, no depression Endocrine: no cold intolerance, no heat intolerance Hematologic/Lymphatic: no easy bruising, no easy bleeding Allergic/Immunologic: no urticaria, no allergic rhinitis Temp Pulse Resp BP Pulse Ox 92 H 18 130/92 97 11/17/19 10:00 11/17/19 10:00 11/17/19 10:00 11/17/19 10:00 Past History Past Medical History: dialysis, ESRD, hypertension, hyperlipidemia, stroke (residual weakness), other (psych disorder) Past Surgical History: No surgical history Social history: denies: smoking, alcohol abuse, prescription drug abuse Family history: hypertension Medications and Allergies Allergies Allergy/AdvReac Type Severity Reaction Status Date / Time adhesive tape Allergy Unknown Verified 11/17/19 09:47 Penicillins Allergy Unknown Verified 11/17/19 09:46 shellfish derived Allergy Unknown Verified 11/17/19 09:47 Seafood Allergy Unknown Uncoded 11/17/19 09:47 Home Medications Medication Instructions Recorded Confirmed Last Taken Type Acetaminophen [Tylenol] 650 mg PO Q6HR PRN 11/18/19 11/18/19 Unknown History Aspirin BABY CHEW TAB 81 mg PO QDAY 11/18/19 11/21/19 Unknown History AtorvaSTATin 20 mg PO QPM 11/18/19 11/21/19 Unknown History Docusate Sodium 100 mg PO Q12HR 11/18/19 11/21/19 Unknown History Folic Acid 2 mg PO Q12HR 11/18/19 11/21/19 Unknown History Midodrine 10 mg PO Q8HR 11/18/19 11/21/19 Unknown History Senna 1 tab PO Q12HR 11/18/19 11/21/19 Unknown History sevelamer HCL [Sevelamer HCl] 800 mg PO TID 11/18/19 11/21/19 Unknown History Active Meds: Active Medications Acetaminophen (Tylenol) 650 mg PO Q4H PRN PRN Reason: Pain, Mild (1-3) Albumin Human (Alburx 25% (Albumin)) 12.5 gm IV MIL PRN PRN Reason: Hypotension Aspirin (Aspirin) 325 mg PO QDAY [facility] Last Admin: 11/20/19 09:13 Dose: 325 mg Documented by: Atorvastatin Calcium (Lipitor) 40 mg PO QHS [facility] Last Admin: 11/20/19 22:29 Dose: 40 mg Documented by: Bisacodyl (Dulcolax) 10 mg NM QDAY PRN PRN Reason: Constipation Dextrose (D50w (25gm) Syringe) 50 ml IV Q30MIN PRN; Protocol PRN Reason: Hypoglycemia Last Admin: 11/18/19 18:12 Dose: 10 ml Documented by: Docusate Sodium (Colace) 100 mg PO BID [facility] Last Admin: 11/20/19 22:00 Dose: Not Given Documented by: Sodium Chloride (Nacl 0.9% 1000 Ml) 1,000 mls @ 100 mls/hr IV DIRECT [facility] Last Admin: 11/20/19 02:05 Dose: 100 mls/hr Documented by: Sodium Chloride (Nacl 0.9%) 100 mls @ 999 mls/hr IV MIL PRN PRN Reason: Hypotension Magnesium Hydroxide (Milk Of Magnesia) 30 ml PO Q4H PRN PRN Reason: Constipation Metoclopramide HCl (Reglan) 10 mg PO Q6H PRN PRN Reason: Nausea And Vomiting Morphine Sulfate (Morphine) 2 mg IV Q4H PRN PRN Reason: Pain, Moderate (4-6) Ondansetron HCl (Zofran) 4 mg IV Q8H PRN PRN Reason: Nausea And Vomiting Oxycodone/Acetaminophen (Percocet 5/325) 1 tab PO Q6H PRN PRN Reason: Pain, Moderate (4-6) Promethazine HCl (Phenergan) 25 mg NM Q6H PRN PRN Reason: Nausea And Vomiting Physical Examination - Vital Signs Vital Signs: Vital Signs Pulse Resp BP Pulse Ox 92 H 18 130/92 97 11/17/19 10:00 11/17/19 10:00 11/17/19 10:00 11/17/19 10:00 - EENT EENT: Present: PERRL - Respiratory Respiratory: Present: chest non-tender - Cardiovascular Cardiovascular: Present: regular rate, normal S1, normal S2 Extremities: Present: no peripheral edema bilatateraly - Gastrointestinal Gastrointestinal: Present: normoactive bowel sounds - Integumentary Integumentary: Present: normal - Neurologic Cranial nerve examination: facial droop, tongue deviation Speech examination: intact Detailed motor examination: other (left 3/5 upper and lower,planter is down going,reflexes are brisk and scissoring of both legs ) - Psychiatric Psychiatric: Present: mood/affect appropriate Results - Laboratory Findings CBC and BMP: 11/17/19 10:04 11/18/19 07:13 Abnormal Lab Findings: Abnormal Labs 11/17/19 11/17/19 11/17/19 10:04 10:04 10:33 RDW 16.9 H Lymph % (Auto) 39.5 H Elbert % (Auto) 10.6 H BUN 50 H Creatinine 7.1 H POC Glucose Phosphorus Magnesium 2.60 H Total Creatine Kinase CK-MB (CK-2) Rel Index Troponin T 0.223 H* NT-Pro-B Natriuret Pep 1785 H Albumin 3.7 L Cholesterol 207 H LDL Cholesterol Direct 137 H HDL Cholesterol 39 L 11/17/19 11/18/19 11/20/19 10:33 07:13 08:38 RDW Lymph % (Auto) Elbert % (Auto) BUN 58 H Creatinine 7.2 H POC Glucose 65 L Phosphorus 4.90 H Magnesium Total Creatine Kinase 20 L CK-MB (CK-2) Rel Index 5.0 H Troponin T 0.235 H* NT-Pro-B Natriuret Pep Albumin Cholesterol LDL Cholesterol Direct HDL Cholesterol Assessment and Plan 1-this is 64 ys old femal with hx of old CVA 10 yswith left side weakness presented with new onset on worsening of left side weakness and slurred speech on 11-16 she is not a candidate for TPA , -MRI brain is suggestive of acute right right frontoparietal infarct with small subdural hematoma, -ECHO is remarkable for 50-55% EF -CTA neck and brain is unremarkable. - LDL#137 pt. is on asa 325 and lipitor 20 mg 2-CKI on hemodialysis 3- Increase legs weakness with brisk reflexes R?O Mylopathy. 4- ? hx of seizure not clear 5- Elevated cardiac enzymes PLAN 1- MRI neck 2-ASA 325 mg daily 3- Increase lipitor 40 mg 4- acrdiac follow up 5- EEG 6- Pt therapy will follw
--- NOTE | 2019-11-21 10:13 | Progress Note ---
Assessment and Plan - Patient Problems (1) Aphasia due to acute cerebrovascular accident (CVA) Current Visit: Yes Status: Acute Plan to address problem: Continue management by primary attending. (2) End-stage renal disease needing dialysis Current Visit: Yes Status: Acute Plan to address problem: continue hemodialysis on Wednesday, Wednesday and Wednesday schedule. (3) Anemia due to chronic kidney disease, on chronic dialysis Current Visit: Yes Status: Chronic Plan to address problem: Give erythropoietin on dialysis (4) Hypertensive chronic kidney disease with stage 5 chronic kidney disease or end stage renal disease Current Visit: Yes Status: Chronic Plan to address problem: Blood pressures controlled. Follow-up blood pressure on current medications (5) Secondary hyperparathyroidism (of renal origin) Current Visit: Yes Status: Chronic Plan to address problem: Continue management Subjective Date of service: 11/21/19 Principal diagnosis: End-stage renal disease Interval history: Patient seen lying in bed. she has no complaints. She looks better today and feels better she states. Objective - Exam Narrative Exam: Middle-aged -[place] female lying in bed in no acute distress HEENT: NCAT, pink oral mucous membrane Neck: Supple, no venous distention CVS: S1S2 RRR with no murmur, rub or gallop Chest: Clear to auscultation Abdomen: Protuberant, soft, nontender, no organomegaly, bowel sounds are present Extremities: No edema Neuro: Awake, alert left hemiplegia, - Vital Signs Vital signs: Vital Signs - 12hr 11/20/19 11/20/19 11/21/19 22:55 23:55 03:46 Temperature 98.0 F 97.4 F L Pulse Rate 84 83 96 H Respiratory 18 18 Rate Blood Pressure 136/80 139/82 Blood Pressure [Left] O2 Sat by Pulse 95 98 Oximetry 11/21/19 11/21/19 08:25 08:46 Temperature 97.0 F L Pulse Rate 65 79 Respiratory 20 Rate Blood Pressure Blood Pressure 141/91 [Left] O2 Sat by Pulse 98 Oximetry - Lab 11/17/19 10:04 11/18/19 07:13 Most recent lab results Calcium 9.6 mg/dL (8.4-10.2) 11/18/19 07:13 Phosphorus 4.90 mg/dL (2.5-4.5) H 11/17/19 10:33 Magnesium 2.60 mg/dL (1.7-2.3) H 11/17/19 10:33 Medications & Allergies - Medications Allergies/Adverse Reactions: Allergies adhesive tape Allergy (Verified 11/17/19 09:47) Unknown Penicillins Allergy (Verified 11/17/19 09:46) Unknown shellfish derived Allergy (Verified 11/17/19 09:47) Unknown Seafood Allergy (Uncoded 11/17/19 09:47) Unknown Home Medications: Home Medications Medication Instructions Recorded Confirmed Last Taken Type Acetaminophen [Tylenol] 650 mg PO Q6HR PRN 11/18/19 11/18/19 Unknown History Aspirin BABY CHEW TAB 81 mg PO QDAY 11/18/19 Unknown History AtorvaSTATin 20 mg PO QPM 11/18/19 Unknown History Docusate Sodium 100 mg PO Q12HR 11/18/19 Unknown History Folic Acid 2 mg PO Q12HR 11/18/19 Unknown History Midodrine 10 mg PO Q8HR 11/18/19 Unknown History Senna 1 tab PO Q12HR 11/18/19 Unknown History sevelamer HCL [Sevelamer HCl] 800 mg PO 11/18/19 Unknown History Active Medications: Generic Name Dose Route Start Last Admin Trade Name Freq PRN Reason Stop Dose Admin Acetaminophen 650 mg 11/17/19 18:44 Tylenol PO Q4H PRN Pain, Mild (1-3) Albumin Human 12.5 gm 11/17/19 16:42 Alburx 25% (Albumin) IV MIL PRN Hypotension Aspirin 325 mg 11/18/19 10:00 11/21/19 09:37 Aspirin PO 325 mg QDAY SMITH Administration Atorvastatin Calcium 40 mg 11/17/19 22:00 11/20/19 22:29 Lipitor PO 40 mg QHS SMITH Administration Bisacodyl 10 mg 11/17/19 18:44 Dulcolax [place] QDAY PRN Constipation Dextrose 50 ml 11/18/19 17:31 11/18/19 18:12 D50w (25gm) Syringe IV 10 ml Q30MIN PRN Administration Hypoglycemia Protocol Docusate Sodium 100 mg 11/17/19 22:00 11/21/19 09:37 Colace PO 100 mg BID SMITH Administration Sodium Chloride 100 mls @ 999 mls/hr 11/20/19 07:54 Nacl 0.9% IV MIL PRN Hypotension Magnesium Hydroxide 30 ml 11/17/19 18:44 Milk Of Magnesia PO Q4H PRN Constipation Metoclopramide HCl 10 mg 11/17/19 18:44 Reglan PO Q6H PRN Nausea And Vomiting Morphine Sulfate 2 mg 11/17/19 18:44 Morphine IV Q4H PRN Pain, Moderate (4-6) Ondansetron HCl 4 mg 11/17/19 18:44 Zofran IV Q8H PRN Nausea And Vomiting Oxycodone/Acetaminophen 1 tab 11/17/19 18:44 Percocet 5/325 PO Q6H PRN Pain, Moderate (4-6) Promethazine HCl 25 mg 11/17/19 18:44 Phenergan [place] Q6H PRN Nausea And Vomiting
--- NOTE | 2019-11-21 16:34 | Magnetic Resonance Report ---
MR cervical spine wo con INDICATION / CLINICAL INFORMATION: 64 years Female; MAIN. TECHNIQUE: Multisequence, multiplanar images of the cervical spine were obtained. COMPARISON: None available. FINDINGS: CRANIOCERVICAL JUNCTION:No significant abnormality. ALIGNMENT: There is no significant spondylolisthesis involving cervical spine. VERTEBRAE:There is no significant edema of the cervical vertebral bodies or visualized posterior ewiiaapaayp ents. VISUALIZED SPINAL CORD: The motion degrades the image quality. However, the cervical spinal cord appe ars to demonstrate appropriate signal intensity. There are scattered white matter changes within the visualized yessica which likely reflects microvascular angiopathy. [id number] ANALYSIS: C2-3: There is a slight central disc bulge without significant spinal stenosis. The neural foramen ar e patent. C3-4: There is also a slight central disc bulge without significant spinal stenosis or foraminal narr owing. C4-5: No significant abnormality. C5-6: There is a slight disc bulge without significant spinal stenosis. There is mild left neural for aminal narrowing. C6-7: There is a slight left-sided at disc bulge without direct cord compression. There is no signifi cant foraminal narrowing. C7-T1: No significant abnormality. PARASPINAL SOFT TISSUES: No significant abnormality. ADDITIONAL FINDINGS: No epidural collections are identified. IMPRESSION: 1. There are multilevel degenerative the changes and mild disc bulges involving the cervical spine as detailed above. Signer Name: Oscar Forman MD Signed: 11/21/2019 4:29 PM Workstation Name: [id number]
[2019-11-21] MEDS: HEPARIN 5,000 UNIT/1 ML VIAL SUB-Q SCH (21:21)
[2019-11-22] MEDS: HEPARIN 5,000 UNIT/1 ML VIAL SUB-Q SCH (05:16)
[2019-11-22 06:42] LABS: Calcium 9.2 mg/dL (8.4-10.2); Hematocrit 48.6 % (30.3-42.9); Hemoglobin 14.6 gm/dl (10.1-14.3); Mean Corpuscular HGB Conc 30 % (30-34); Mean Corpuscular Volume 93 fl (79-97); Platelet Count 158 K/mm3 (140-440); Red Blood Count 5.24 M/mm3 (3.65-5.03); Red Cell Distribution Width 16.7 % (13.2-15.2)
[2019-11-22] MEDS: ASPIRIN 325 MG TAB PO SCH (10:00)
[2019-11-22] MEDS: DOCUSATE SODIUM 100 MG CAP PO SCH (10:00)
--- NOTE | 2019-11-22 13:58 | Progress Note ---
Assessment and Plan - Patient Problems (1) Aphasia due to acute cerebrovascular accident (CVA) Current Visit: Yes Status: Acute Plan to address problem: Continue management by primary attending. (2) End-stage renal disease needing dialysis Current Visit: Yes Status: Acute Plan to address problem: continue hemodialysis on Wednesday, Wednesday and Wednesday schedule. (3) Anemia due to chronic kidney disease, on chronic dialysis Current Visit: Yes Status: Chronic Plan to address problem: Give erythropoietin on dialysis (4) Hypertensive chronic kidney disease with stage 5 chronic kidney disease or end stage renal disease Current Visit: Yes Status: Chronic Plan to address problem: Blood pressures controlled. Follow-up blood pressure on current medications (5) Secondary hyperparathyroidism (of renal origin) Current Visit: Yes Status: Chronic Plan to address problem: Continue management Subjective Date of service: 11/22/19 Principal diagnosis: End-stage renal disease Interval history: Patient seen lying in bed in Dialysis unit. she has no complaints. She is tolerating Dialysis with no complications. BP 97/51 P 87 UF 1.5 L Q300/600 Objective - Exam Narrative Exam: Middle-aged -Bhut[place] female lying in bed in no acute distress HEENT: NCAT, pink oral mucous membrane Neck: Supple, no venous distention CVS: S1S2 RRR with no murmur, rub or gallop Chest: Clear to auscultation Abdomen: Protuberant, soft, nontender, no organomegaly, bowel sounds are present Extremities: No edema Neuro: Awake, alert left hemiplegia, - Vital Signs Vital signs: Vital Signs - 12hr 11/22/19 11/22/19 11/22/19 03:58 07:38 11:00 Temperature 97.4 F L 97.4 F L 97.0 F L Pulse Rate 82 68 70 Respiratory 18 17 18 Rate Blood Pressure 113/67 Blood Pressure 136/75 [Left] O2 Sat by Pulse 100 99 98 Oximetry - Lab 11/22/19 05:49 11/22/19 05:49 Most recent lab results Calcium 9.2 mg/dL (8.4-10.2) 11/22/19 05:49 Phosphorus 4.90 mg/dL (2.5-4.5) H 11/17/19 10:33 Magnesium 2.60 mg/dL (1.7-2.3) H 11/17/19 10:33 Medications & Allergies - Medications Allergies/Adverse Reactions: Allergies adhesive tape Allergy (Verified 11/17/19 09:47) Unknown Penicillins Allergy (Verified 11/17/19 09:46) Unknown shellfish derived Allergy (Verified 11/17/19 09:47) Unknown Seafood Allergy (Uncoded 11/17/19 09:47) Unknown Home Medications: Home Medications Medication Instructions Recorded Confirmed Last Taken Type Acetaminophen [Tylenol] 650 mg PO Q6HR PRN 11/18/19 11/18/19 Unknown History Aspirin BABY CHEW TAB 81 mg PO QDAY 11/18/19 11/21/19 Unknown History AtorvaSTATin 20 mg PO QPM 11/18/19 11/21/19 Unknown History Docusate Sodium 100 mg PO Q12HR 11/18/19 11/21/19 Unknown History Folic Acid 2 mg PO Q12HR 11/18/19 11/21/19 Unknown History Midodrine 10 mg PO Q8HR 11/18/19 11/21/19 Unknown History Senna 1 tab PO Q12HR 11/18/19 11/21/19 Unknown History sevelamer HCL [Sevelamer HCl] 800 mg PO TID 11/18/19 11/21/19 Unknown History Active Medications: Generic Name Dose Route Start Last Admin Trade Name Freq PRN Reason Stop Dose Admin Acetaminophen 650 mg 11/17/19 18:44 Tylenol PO Q4H PRN Pain, Mild (1-3) Albumin Human 12.5 gm 11/17/19 16:42 Alburx 25% (Albumin) IV MIL PRN Hypotension Aspirin 325 mg 11/18/19 10:00 11/21/19 09:37 Aspirin PO 325 mg QDAY SMITH Administration Atorvastatin Calcium 40 mg 11/17/19 22:00 11/21/19 21:22 Lipitor PO 40 mg QHS SMITH Administration Bisacodyl 10 mg 11/17/19 18:44 Dulcolax [place] QDAY PRN Constipation Dextrose 50 ml 11/18/19 17:31 11/18/19 18:12 D50w (25gm) Syringe IV 10 ml Q30MIN PRN Administration Hypoglycemia Protocol Docusate Sodium 100 mg 11/17/19 22:00 11/21/19 21:21 Colace PO 100 mg BID SMITH Administration Heparin Sodium (Porcine) 5,000 unit 11/21/19 22:00 11/22/19 05:16 Heparin SUB-Q 5,000 unit Q8HR SMITH Administration Sodium Chloride 100 mls @ 999 mls/hr 11/20/19 07:54 Nacl 0.9% IV MIL PRN Hypotension Magnesium Hydroxide 30 ml 11/17/19 18:44 Milk Of Magnesia PO Q4H PRN Constipation Metoclopramide HCl 10 mg 11/17/19 18:44 Reglan PO Q6H PRN Nausea And Vomiting Morphine Sulfate 2 mg 11/17/19 18:44 Morphine IV Q4H PRN Pain, Moderate (4-6) Ondansetron HCl 4 mg 11/17/19 18:44 Zofran IV Q8H PRN Nausea And Vomiting Oxycodone/Acetaminophen 1 tab 11/17/19 18:44 Percocet 5/325 PO Q6H PRN Pain, Moderate (4-6) Promethazine HCl 25 mg 11/17/19 18:44 Phenergan [place] Q6H PRN Nausea And Vomiting
[2019-11-22 16:15] VITALS: BP 112/62
--- NOTE | 2019-11-22 16:17 | Discharge Summary ---
Providers - Providers Date of Admission: 11/19/19 16:35 Attending physician: VIVI ISAACS 11/17/19 11:46 Consult to Physician [CONS] Urgent Comment: Consulting Provider: JONNATHAN MON Physician Instructions: Reason For Exam: ESRD needs D 11/17/19 16:25 Speech Therapy Evaluation and Treat [CONS] Urgent Reason For Exam: Unable to pass swallow test X 2 11/17/19 16:36 Occupational Therapy Evaluate and Treat [CONS] Routine Comment: Reason For Exam: Acute CVA/left-sided weakness Physical Therapy Evaluation and Treat [CONS] Routine Comment: Reason For Exam: Acute CVA/left-sided weakness 11/17/19 18:44 Consult to Case Management [CONS] Routine Services Needed at Discharge: Dx Board Operator Notified:: manager case Comment:: Discharge planning Additional Physician Instructions: Discharge planning Consult to Dietitian/Nutrition [CONS] Routine Physician Instructions: Reason For Exam: Reason for Consult: Nutrition Recommendations Reason for Consult: Malnutrition 11/19/19 16:02 Midline [Consult to PICC Line RN] [CONS] Urgent Reason For Exam: iv hydration Type Line:: Midline 11/20/19 10:46 Consult to Physician [CONS] Routine Comment: Consulting Provider: RANCHO AJ Physician Instructions: Reason For Exam: Acute on chronic CVA/dysphagia dysarthria Primary care physician: RADHA ARIAS Hospitalization Condition: Stable Pertinent studies: - 11/18 MRI: Acute infarct extending along the right frontoparietal junction and right insula, small subdural hematoma extending along the posterior right cer ebral convexity, extensive chronic microvascular angiopathy and old infarcts. - 11/16 CTH: No acute abnormality. Extensive chronic change. - 11/16 CTA Head: No indication of large vessel occlusion or hemodynamically significant stenosis intracranial. - 11/16 CTA neck: No indication of hemodynamically significant stenosis at the carotid bifurcations or elsewhere. - 11/16 Echo: EF of 50-55% with mild left ventricular limitation, MR and TR. - 11/20 Cspine MRI shows degenerative changes. Hospital course: This is 64 year old female with a CVA (10 years ago) with residual left-sided weakness, ESRD, HLD, HTN who presented to [facility] on 11/16 with sudden onset of slurred speech and left-sided weakness since this morning and left facial droop. Neurology was consulted and MRI shows acute infarct extending along the right frontoparietal junction and right insular small subdural hematoma extending along the posterior right cerebral convexity, chronic microvascular angiopathy and old infarcts, CT head showed extensive chronic changes, CTA showed significant intracranial stenosis and CTA neck showed no indication of hemodynamically significant stenosis at the carotid bifurcations or elsewhere. Echo revealed EF of 50-55% with mild left ventricular limitation, MR and TR and Cervical spine MRI showed degenerative changes in spine. Her HD schedule is MWF. Her covid test on 11/21 was negative. Disposition: [id number]/[place]-[id number] SNF [facility] CERT - Discharge Diagnoses (1) Stroke (cerebrum) Status: Acute Qualifiers: CVA mechanism: unspecified Qualified Code(s): I63.9 - Cerebral infarction, unspecified (2) End-stage renal disease needing dialysis Status: Chronic (3) Hyperlipemia Status: Chronic (4) DNR (do not resuscitate) Status: Chronic Core Measure Documentation - Palliative Care Palliative Care/ Comfort Measures: Not Applicable - Core Measures Any of the following diagnoses?: stroke - Stroke Discharge Requirements Statin for LDL = or >70 mg/dl on DC: Yes Anticoag for atrial fib/atrial flutter: Not Applicable Antithrombotic for ischemic stroke: Yes Exam - Constitutional Vitals: Temp Pulse Resp BP Pulse Ox 97.1 F L 74 18 112/72 97 11/22/19 15:46 11/22/19 15:46 11/22/19 15:46 11/22/19 15:46 11/22/19 15:46 General appearance: Present: no acute distress - EENT Eyes: Present: PERRL, EOM intact ENT: clear oral mucosa - Neck Neck: Present: normal ROM - Respiratory Respiratory effort: normal Respiratory: bilateral: CTA - Cardiovascular Rhythm: regular Heart Sounds: Present: S1 & S2. Absent: systolic murmur, diastolic murmur - Extremities Extremities: no ischemia, pulses intact - Abdominal General gastrointestinal: Present: soft, non-tender, normal bowel sounds - Integumentary Integumentary: Present: clear, warm, dry - Musculoskeletal Musculoskeletal: left sided weakness - Psychiatric Psychiatric: cooperative - Allied Health Allied health notes reviewed: nursing, PT, ST, OT, social work, case management Plan Activity: fall precautions, other (aspiration precautions) Diet: per dietitian instruction (pureeed diet witrh aspiration precautions) Follow up with: RADHA ARIAS MD [Primary Care Provider] - 7 Days
== END 2019-11-22 21:30 | DRG 64 ==
LOC: ED 09:38 → 4A 11:50 → OBSVTOIN 11-19 16:35
PROVIDERS: ADMIT Internal Medicine; ATTEND Internal Medicine
PROC: 05H833Z Insertion of Infusion Device into Left Axillary Vein, Percutaneous Approach (ICD-10-PCS; 2019-11-19)
PROC: B54NZZA Ultrasonography of Left Upper Extremity Veins, Guidance (ICD-10-PCS; 2019-11-19)
PROC: 5A1D70Z Performance of Urinary Filtration, Intermittent, Less than 6 Hours Per Day (ICD-10-PCS; principal; 2019-11-20)
PROC: 5A1D70Z Performance of Urinary Filtration, Intermittent, Less than 6 Hours Per Day (ICD-10-PCS; 2019-11-22)
DX: I63.9 Cerebral infarction, unspecified (principal); N18.6 End stage renal disease; I12.0 Hypertensive chronic kidney disease with stage 5 chronic kidney disease or end stage renal disease; E78.5 Hyperlipidemia, unspecified; G81.94 Hemiplegia, unspecified affecting left nondominant side; R47.01 Aphasia; N25.81 Secondary hyperparathyroidism of renal origin; D63.1 Anemia in chronic kidney disease; R13.10 Dysphagia, unspecified; R47.1 Dysarthria and anarthria; Z66 Do not resuscitate; Z88.0 Allergy status to penicillin; Z91.013 Allergy to seafood; Z86.73 Personal history of transient ischemic attack (TIA), and cerebral infarction without residual deficits; Z82.49 Family history of ischemic heart disease and other diseases of the circulatory system; Z20.828 Contact with and (suspected) exposure to other viral communicable diseases
CPT/HCPCS: 36415; 70450; 70496; 70498; 70551; 71045; 72141; 80048; 80061; 80074; 80076; 82550; 82553; 82962; 83036; 83735; 83880; 84100; 84484; 85025; 85027; 85610; 85670; 85730; 93005; G0378; A9270-GY; J1644; J7030; Q9967; U0003-CS

== ENCOUNTER 2019-12-04 12:47 | Emergency (ER) | payer MEDICAID ==
[2019-12-04 14:56] LABS: Calcium 10.2 mg/dL (8.4-10.2)
[2019-12-04 15:00] LABS: Basophils % (Auto) 0.3 % (0.0-1.8); Eosinophils # (Auto) 0.4 K/mm3 (0.0-0.4); Eosinophils % (Auto) 5.6 % (0.0-4.3); Hematocrit 44.4 % (30.3-42.9); Lymphocytes # (Auto) 2.8 K/mm3 (1.2-5.4); Lymphocytes % (Auto) 39.9 % (13.4-35.0); Mean Corpuscular HGB Conc 31 % (30-34); Mean Corpuscular Volume 89 fl (79-97); Monocytes # (Auto) 0.6 K/mm3 (0.0-0.8); Platelet Count 171 K/mm3 (140-440); Red Blood Count 5.01 M/mm3 (3.65-5.03); Red Cell Distribution Width 16.6 % (13.2-15.2)
[2019-12-04 15:15] LABS: INR 1.03 (0.87-1.13)
[2019-12-04 15:16] LABS: Partial Thromboplastin Time 33.5 Sec. (24.2-36.6)
--- NOTE | 2019-12-04 15:36 | Consultation ---
History of Present Illness - Reason for Consult Consult date: 12/04/19 - History of Present Illness HPI: 64yo female with ESRD on HD via right IJ permcath who presented to the ED after inadvertently pulled her catheter out. The patient was unable to undergo dialysis today. Vascular has been consulted to replace her access. Patient with no other complaints. ROS: as per HPI PE: NAD, A&Ox3 RRR non-labored respirations right chest wall catheter site closed with no drainage or erythema neuro grossly intact Labs pending Plan: We take patient to metallurgy laboratory technician for permcath insertion today Medications and Allergies Allergies Allergy/AdvReac Type Severity Reaction Status Date / Time adhesive tape Allergy Unknown Verified 11/17/19 09:47 Penicillins Allergy Unknown Verified 11/17/19 09:46 shellfish derived Allergy Unknown Verified 11/17/19 09:47 Seafood Allergy Unknown Uncoded 11/17/19 09:47 Home Medications Medication Instructions Recorded Confirmed Last Taken Type Acetaminophen [Tylenol] 650 mg PO Q6HR PRN 11/18/19 11/18/19 Unknown History Aspirin BABY CHEW TAB 81 mg PO QDAY 11/18/19 11/21/19 Unknown History AtorvaSTATin 20 mg PO QPM 11/18/19 11/21/19 Unknown History Docusate Sodium 100 mg PO Q12HR 11/18/19 11/21/19 Unknown History Folic Acid 2 mg PO Q12HR 11/18/19 11/21/19 Unknown History Midodrine 10 mg PO Q8HR 11/18/19 11/21/19 Unknown History Senna 1 tab PO Q12HR 11/18/19 11/21/19 Unknown History sevelamer HCL [Sevelamer HCl] 800 mg PO TID 11/18/19 11/21/19 Unknown History Results - Labs CBC & Chem 7: 12/04/19 13:57 12/04/19 13:57 Labs: Abnormal lab results 12/04/19 12/04/19 Range/Units 13:57 13:57 Hct 44.4 H (30.3-42.9) % RDW 16.6 H (13.2-15.2) % Lymph % (Auto) 39.9 H (13.4-35.0) % [place] % (Auto) 9.0 H (0.0-7.3) % Eos % (Auto) 5.6 H (0.0-4.3) % BUN 34 H (7-17) mg/dL Creatinine 7.2 H (0.6-1.2) mg/dL
[2019-12-04] MEDS ORDERED: fentaNYL 100 MCG/2 ML INJ ONE (15:52)
[2019-12-04] MEDS ORDERED: HEPARIN/NS 5000 UNIT/500ML 500 ML IR ONE (15:52)
[2019-12-04] MEDS ORDERED: MIDAZOLAM 2 MG/2 ML INJ ONE (15:52)
[2019-12-04] MEDS ORDERED: SODIUM CHLORIDE 0.9% 250ML 0 ML ONE (15:53)
[2019-12-04] MEDS ORDERED: LIDOCAINE 1%/EPINEPHRINE 1:100,000 VIAL (20 ML) INFILTRATI ONE ×2 (15:53→16:07)
--- NOTE | 2019-12-04 15:53 | Emergency Department Report ---
ED General Adult HPI - General Chief complaint: Extremity Problem,Nontraumatic Stated complaint: PULLED OUT PORT PUI?: No Time Seen by Provider: 12/04/19 13:02 Source: EMS Mode of arrival: Stretcher Limitations: No Limitations - History of Present Illness Initial comments: This is a 64-year-old female who presents for group home facility after right sided chest Vas-Cath has dislodged. She has history of end-stage renal d isease on dialysis Wednesday, CVA, anemia, dyslipidemia, DNR status. She denies any pain or shortness of breath. The catheter was accidentally pulled when she was undressing on yesterday. She receives hemodialysis at at dialysis center on [facility]. Her prescription eyeglass maker is not affiliated with [facility]. She received dialysis on Wednesday. Otherwise she is in her normal state of health. -: days(s) (1) Severity scale (0 -10): 0 Improves with: none Worsens with: none Associated Symptoms: denies other symptoms - Related Data Home Medications Medication Instructions Recorded Confirmed Last Taken Acetaminophen [Tylenol] 650 mg PO Q6HR PRN 11/18/19 11/18/19 Unknown Aspirin BABY CHEW TAB 81 mg PO QDAY 11/18/19 11/21/19 Unknown AtorvaSTATin 20 mg PO QPM 11/18/19 11/21/19 Unknown Docusate Sodium 100 mg PO Q12HR 11/18/19 11/21/19 Unknown Folic Acid 2 mg PO Q12HR 11/18/19 11/21/19 Unknown Midodrine 10 mg PO Q8HR 11/18/19 11/21/19 Unknown Senna 1 tab PO Q12HR 11/18/19 11/21/19 Unknown sevelamer HCL [Sevelamer HCl] 800 mg PO TID 11/18/19 11/21/19 Unknown Allergies Allergy/AdvReac Type Severity Reaction Status Date / Time adhesive tape Allergy Unknown Verified 11/17/19 09:47 Penicillins Allergy Unknown Verified 11/17/19 09:46 shellfish derived Allergy Unknown Verified 11/17/19 09:47 Seafood Allergy Unknown Uncoded 11/17/19 09:47 ED Review of Systems ROS: Stated complaint: PULLED OUT PORT Other details as noted in HPI Comment: All other systems reviewed and negative Constitutional: denies: fever, malaise Respiratory: denies: cough Cardiovascular: denies: chest pain Gastrointestinal: denies: abdominal pain, nausea, vomiting ED Past Medical Hx - Past Medical History Previous Medical History?: Yes Hx Hypertension: Yes Hx Congestive Heart Failure: No Hx Diabetes: No Hx Deep Vein Thrombosis: No Hx Renal Disease: Yes (Hemodialysis) Hx Psychiatric Treatment: Yes Hx Asthma: No Hx COPD: No Additional medical history: Hyperlipidemia, Pruritus, Subarachnoid Hemorrhage - Surgical History Past Surgical History?: Yes Hx Pacemaker: No Hx Internal Defibrillator: No - Social History Smoking Status: Never Smoker - Medications Home Medications: Home Medications Medication Instructions Recorded Confirmed Last Taken Type Acetaminophen [Tylenol] 650 mg PO Q6HR PRN 11/18/19 11/18/19 Unknown History Aspirin BABY CHEW TAB 81 mg PO QDAY 11/18/19 11/21/19 Unknown History AtorvaSTATin 20 mg PO QPM 11/18/19 11/21/19 Unknown History Docusate Sodium 100 mg PO Q12HR 11/18/19 11/21/19 Unknown History Folic Acid 2 mg PO Q12HR 11/18/19 11/21/19 Unknown History Midodrine 10 mg PO Q8HR 11/18/19 11/21/19 Unknown History Senna 1 tab PO Q12HR 11/18/19 11/21/19 Unknown History sevelamer HCL [Sevelamer HCl] 800 mg PO TID 11/18/19 11/21/19 Unknown History ED Physical Exam - General Limitations: No Limitations General appearance: alert, in no apparent distress - Head Head exam: Present: atraumatic, normocephalic - Eye Eye exam: Present: normal appearance - ENT ENT exam: Present: mucous membranes moist - Neck Neck exam: Present: normal inspection, full ROM - Respiratory Respiratory exam: Present: normal lung sounds bilaterally. Absent: respiratory distress, wheezes, rales, rhonchi - Cardiovascular Cardiovascular Exam: Present: regular rate, normal rhythm, other (Chest wall: No bleeding, no no erythema no purulence). Absent: systolic murmur, diastolic mur mur, rubs, gallop - GI/Abdominal GI/Abdominal exam: Present: soft. Absent: distended, tenderness, guarding, rebound - Neurological Exam Neurological exam: Present: alert, oriented X3 - Psychiatric Psychiatric exam: Present: normal affect, normal mood - Skin Skin exam: Present: warm, dry, intact, normal color. Absent: rash ED Medical Decision Making - Lab Data Result diagrams: 12/04/19 13:57 12/04/19 13:57 Laboratory Results - last 24 hr 12/04/19 12/04/19 12/04/19 13:57 13:57 13:57 WBC 6.9 RBC 5.01 Hgb 14.0 Hct 44.4 H MCV 89 MCH 28 MCHC 31 RDW 16.6 H Plt Count 171 Lymph % (Auto) 39.9 H [place] % (Auto) 9.0 H Eos % (Auto) 5.6 H Baso % (Auto) 0.3 Lymph # 2.8 [place] # 0.6 Eos # 0.4 Baso # 0.0 Seg Neutrophils % 45.2 Seg Neutrophils # 3.1 PT 13.6 INR 1.03 APTT 33.5 Sodium 141 Potassium 4.4 Chloride 98.0 Carbon Dioxide 27 Anion Gap 20 BUN 34 H Creatinine 7.2 H Estimated GFR 7 BUN/Creatinine Ratio 5 Glucose 87 Calcium 10.2 - Medical Decision Making Ms. Cooper presents after her right chest permacath/Vas-Cath dislodged on yesterday. Her vascular surgeon evaluated patient emergency department. She is currently in the catheterization lab for the insertion of hemodialysis access placement. Potassium within normal limits. She does not have any evidence of acute uremia symptoms such as delirium or shortness of breath. With normal potassium, she will be discharged back to her group home facility for next routine dialysis session on Wednesday. Critical care attestation.: If time is entered above; I have spent that time in minutes in the direct care of this critically ill patient, excluding procedure time. ED Disposition Clinical Impression: Problem with dialysis access, ESRD on hemodialysis Disposition: DC-01 TO HOME OR SELFCARE Is pt being admited?: No Does the pt Need Aspirin: No Condition: Stable
[2019-12-04] MEDS: HEPARIN 10,000 UNITS/10 ML VIAL ONE ×2 (16:12→16:13)
--- NOTE | 2019-12-04 16:26 | Post Operative Note ---
Date of procedure: 12/04/19 Pre-op diagnosis: ESRD Post-op diagnosis: same Procedure: Right IJ Permcath Insertion Anesthesia: MAC, local Surgeon: VIRGINIA SINGH Estimated blood loss: minimal Pathology: none Condition: stable Disposition: floor
--- NOTE | 2019-12-04 17:12 | Operative Report ---
STAFF SURGEON: Dr. Pablo York. PREOPERATIVE DIAGNOSIS: End-stage renal disease. POSTOPERATIVE DIAGNOSIS: End-stage renal disease. PROCEDURE PERFORMED: Right IJ PermCath insertion. COMPLICATIONS: None. ESTIMATED BLOOD LOSS: Less than 10 mL. ANESTHESIA: Local MAC. INDICATIONS FOR PROCEDURE: This is a 64-year-old female with end-stage renal disease, on hemodialysis via right IJ PermCath, who presented to the Emergency Department after inadvertently pulling out the catheter in its entirety. Therefore, vascular consultation was obtained for catheter replacement. The patient was explained the risks, benefits and alternatives of procedure, expressed understanding and wished to proceed. DESCRIPTION OF PROCEDURE: After appropriate consent was obtained, the patient was brought back to the lab technician, placed on the table in supine position. The right neck and chest were prepped and draped in usual sterile fashion with ChloraPrep. Appropriate time-out performed indicating correct patient, procedure, and site of procedure. I then began the intervention by obtaining the percutaneous access of the right internal jugular vein using a micropuncture technique under ultrasound guidance, was able to obtain access, needle was exchanged for micropuncture sheath using Seldinger technique. A stiff J-wire was placed into the inferior vena cava. MicroSheath was removed. A stab incision was made on the right anterior chest wall and then the 23 cm straight PermCath was tunneled subcutaneously to the access site. The access site was then thoroughly dilated appropriately. Sheath and dilator were placed over the wire into the SVC. The dilator and wire were removed. The catheter was then placed through the peel-away sheath with the tip of the catheter at the SVC right atrial junction. After the peel-away sheath was removed, we then proceeded to draw blood from both lumens, which caitlin appropriately, were then flushed with heparinized saline. Appropriate amount of heparin was placed in each port. Access site was then closed with deep subcutaneous layer with a 3-0 Vicryl and the skin was approximated with 3-0 nylon. The catheter exit site was sutured with a 3-0 nylon. Appropriate dressing was placed. The patient tolerated the procedure well, emerged from her conscious sedation and was sent back to the Emergency Department in stable condition. JOB# [id number] GINGER/MAYANK
[2019-12-04 19:57] VITALS: BP 147/78
== END 2019-12-04 19:57 | disposition home or self-care (01) ==
LOC: ED 12:47
DX: T85.898A Other specified complication of other internal prosthetic devices, implants and grafts, initial encounter (principal); I12.0 Hypertensive chronic kidney disease with stage 5 chronic kidney disease or end stage renal disease; N18.6 End stage renal disease; Z99.2 Dependence on renal dialysis; E78.49 Other hyperlipidemia; Z91.013 Allergy to seafood; Z91.09 Other allergy status, other than to drugs and biological substances; Y92.89 Other specified places as the place of occurrence of the external cause
CPT/HCPCS: 36415; 36558; 77001; 80048; 85025; 85610; 85730; 99283; C1750; J1644; J2250; J3010; J7050

== ENCOUNTER 2019-12-25 13:49 | Emergency (ER) | payer MEDICARE ==
--- NOTE | 2019-12-25 14:41 | Emergency Department Report ---
ED General Adult HPI - General Chief complaint: Medical Clearance Stated complaint: EMERGENCY DIALYSIS Time Seen by Provider: 12/25/19 14:22 Source: EMS Mode of arrival: Stretcher Limitations: Other - History of Present Illness Initial comments: 64-year-old female with history of ESRD, hypotension, diabetes, CVA, presents to ED from [facility] with reported patient needs dialysis. Note from group home states patient "last dialysis last Wednesday/," which is either 4 or 5 days ago. Patient was last admitted and discharged to [facility] 1 week ago for Vas-Cath replacement. During that admission, it is charted that patient was dialyzed on 12/19/2019. ER nurse spoke with group home, they report that patient was unable to go to dialysis today because she does not have a COVID test result. intermediate states they did a COVID test on patient today. -: days(s) (4) Associated Symptoms: denies: chest pain, nausea/vomiting, shortness of breath - Related Data Home Medications Medication Instructions Recorded Confirmed Last Taken Acetaminophen [Acetaminophen TAB] 650 mg PO Q6HR PRN 11/18/19 12/19/19 Unknown AtorvaSTATin 20 mg PO QPM 11/18/19 12/19/19 Unknown Docusate Sodium 100 mg PO Q12HR 11/18/19 12/19/19 Unknown Folic Acid 2 mg PO Q12HR 11/18/19 12/19/19 Unknown Midodrine 10 mg PO Q8HR 11/18/19 12/19/19 Unknown Senna 1 tab PO Q12HR 11/18/19 12/19/19 Unknown Previous Rx's Medication Instructions Recorded Last Taken Type Aspirin [Aspirin BABY CHEW TAB] 81 mg PO QDAY tab.chew 12/19/19 Unknown Rx Midodrine [Proamatine] 10 mg PO 0600,1200,1800 tablet 12/19/19 Unknown Rx Sennosides Tab [Senokot] 8.6 mg PO Q12HR tablet 12/19/19 Unknown Rx Sevelamer Carbonate [Renvela] 800 mg PO TIDWM tablet 12/19/19 Unknown Rx oxyCODONE /ACETAMINOPHEN [Percocet 1 tab PO Q6H PRN tablet 12/19/19 Unknown Rx 5/325 mg] Allergies Allergy/AdvReac Type Severity Reaction Status Date / Time adhesive tape Allergy Unknown Verified 11/17/19 09:47 Penicillins Allergy Unknown Verified 11/17/19 09:46 shellfish derived Allergy Unknown Verified 11/17/19 09:47 Seafood Allergy Unknown Uncoded 11/17/19 09:47 ED Review of Systems ROS: Stated complaint: EMERGENCY DIALYSIS Other details as noted in HPI Comment: All other systems reviewed and negative Respiratory: denies: shortness of breath Cardiovascular: denies: chest pain Gastrointestinal: denies: nausea, vomiting ED Past Medical Hx - Past Medical History Previous Medical History?: Yes Hx Hypertension: Yes Hx CVA: Yes (L weakness) Hx Congestive Heart Failure: No Hx Diabetes: Yes Hx Deep Vein Thrombosis: No Hx Renal Disease: Yes (Hemodialysis) Hx Psychiatric Treatment: Yes Hx Asthma: No Hx COPD: No Additional medical history: Hyperlipidemia, Pruritus, Subarachnoid Hemorrhage - Surgical History Past Surgical History?: No Hx Pacemaker: No Hx Internal Defibrillator: No - Social History Smoking Status: Never Smoker Substance Use Type: None - Medications Home Medications: Home Medications Medication Instructions Recorded Confirmed Last Taken Type Acetaminophen [Acetaminophen TAB] 650 mg PO Q6HR PRN 11/18/19 12/19/19 Unknown H istory AtorvaSTATin 20 mg PO QPM 11/18/19 12/19/19 Unknown History Docusate Sodium 100 mg PO Q12HR 11/18/19 12/19/19 Unknown History Folic Acid 2 mg PO Q12HR 11/18/19 12/19/19 Unknown History Midodrine 10 mg PO Q8HR 11/18/19 12/19/19 Unknown History Senna 1 tab PO Q12HR 11/18/19 12/19/19 Unknown History Aspirin [Aspirin BABY CHEW TAB] 81 mg PO QDAY tab.chew 12/19/19 Unknown Rx Midodrine [Proamatine] 10 mg PO 0600,1200,1800 tablet 12/19/19 Unknown Rx Sennosides Tab [Senokot] 8.6 mg PO Q12HR tablet 12/19/19 Unknown Rx Sevelamer Carbonate [Renvela] 800 mg PO TIDWM tablet 12/19/19 Unknown Rx oxyCODONE /ACETAMINOPHEN [Percocet 1 tab PO Q6H PRN tablet 12/19/19 Unknown Rx 5/325 mg] ED Physical Exam - General Limitations: Other General appearance: alert, in no apparent distress - Head Head exam: Present: atraumatic, normocephalic - Eye Eye exam: Present: normal appearance, EOMI - ENT ENT exam: Present: mucous membranes moist - Neck Neck exam: Present: normal inspection - Respiratory Respiratory exam: Present: normal lung sounds bilaterally. Absent: respiratory distress - Cardiovascular Cardiovascular Exam: Present: regular rate, normal rhythm, other (Vas-Cath present right upper chest wall) - GI/Abdominal GI/Abdominal exam: Present: soft. Absent: distended, tenderness - Neurological Exam Neurological exam: Present: alert, oriented X3 - Psychiatric Psychiatric exam: Present: normal affect, normal mood - Skin Skin exam: Present: warm, dry, intact, normal color ED Course Vital Signs 12/25/19 12/25/19 12/25/19 14:11 14:31 15:01 Temperature 98.5 F Pulse Rate 78 79 79 Respiratory 14 12 11 L Rate Blood Pressure 135/77 135/77 129/78 O2 Sat by Pulse 98 98 99 Oximetry 12/25/19 12/25/19 15:30 16:01 Temperature Pulse Rate 83 Respiratory 12 13 Rate Blood Pressure 148/87 133/84 O2 Sat by Pulse 98 100 Oximetry ED Medical Decision Making - Lab Data Result diagrams: 12/25/19 15:11 12/25/19 15:11 - Medical Decision Making 64-year-old female sent to ED from group home for dialysis. Patient did not meet criteria for emergent dialysis. She was normal. She is in no respiratory distress. Lungs are clear. O2 sats are normal. Patient will be discharged back to her group home to be dialyzed according to her normal schedule. Critical care attestation.: If time is entered above; I have spent that time in minutes in the direct care of this critically ill patient, excluding procedure time. ED Disposition Clinical Impression: ESRD (end stage renal disease) Disposition: DC-01 TO HOME OR SELFCARE Is pt being admited?: No Condition: Stable Instructions: End-Stage Kidney Disease (ED) Referrals: PRIMARY CARE [Primary Care Provider] - 3-5 Days Time of Disposition: 16:49
[2019-12-25 16:02] LABS: Basophils % (Auto) 0.5 % (0.0-1.8); Eosinophils # (Auto) 0.2 K/mm3 (0.0-0.4); Eosinophils % (Auto) 3.2 % (0.0-4.3); Hematocrit 42.2 % (30.3-42.9); Hemoglobin 13.4 gm/dl (10.1-14.3); Mean Corpuscular HGB Conc 32 % (30-34); Mean Corpuscular Volume 88 fl (79-97); Monocytes # (Auto) 0.6 K/mm3 (0.0-0.8); Monocytes % (Auto) 7.5 % (0.0-7.3); Platelet Count 142 K/mm3 (140-440); Red Blood Count 4.82 M/mm3 (3.65-5.03); Red Cell Distribution Width 16.8 % (13.2-15.2)
[2019-12-25 16:20] LABS: Calcium 9.8 mg/dL (8.4-10.2)
[2019-12-25 16:25] VITALS: BP 133/84
== END 2019-12-25 21:29 | disposition home or self-care (01) ==
LOC: ED 13:49
DX: E13.22 Other specified diabetes mellitus with diabetic chronic kidney disease (principal); I12.0 Hypertensive chronic kidney disease with stage 5 chronic kidney disease or end stage renal disease; N18.6 End stage renal disease; Z99.2 Dependence on renal dialysis; Z79.4 Long term (current) use of insulin; Z86.73 Personal history of transient ischemic attack (TIA), and cerebral infarction without residual deficits; Z79.899 Other long term (current) drug therapy; Z88.0 Allergy status to penicillin; Z91.013 Allergy to seafood; Z91.09 Other allergy status, other than to drugs and biological substances
CPT/HCPCS: 36415; 80048; 85025; 99283